=== PATIENT | female | born 1970 | race Caucasian/White ===

== ENCOUNTER 2020-11-14 13:00 | Emergency (ER) | payer OTHER, SELFPAY ==
--- NOTE | ~2020-11-14 | XR_ITS ---
XR ribs LT 2V w CXR 2V DATE: 11/14/2020 13:42 INDICATION: Fall on left side one week ago. Left chest pain TECHNIQUE: PA and lateral chest. 3 views of the left rib cage. COMPARISON: None FINDINGS: No heart size. No hilar or mediastinal enlargement. No pulmonary infiltrate or consolidation, pleural effusion or pulmonary vascular congestion or pneumo thorax. No left rib fracture is evident. IMPRESSION: No active cardiac pulmonary disease No evidence of left rib fracture Reviewed, dictated and finalized at location A. AD DRESSER
[2020-11-14 13:03] VITALS: BP 121/83; PULSE 107; RESP 18; TEMP 36.3; O2SAT 99
[2020-11-14] MEDS: KETOROLAC (*BKC) 60 MG/2 ML VIAL IM (13:40)
--- NOTE | 2020-11-14 13:57 | ED.FALL ---
HPI - Fall General Chief Complaint: Fall Stated Complaint: fall last week, rib pain Time Seen by Provider: 11/14/20 13:15 History of Present Illness HPI Narrative: Patient is a 50-year-old female who presents ER with left anterior chest wall pain just inferior to the breast. She fell onto a piece of luggage last week and the pain has been persistent. Is with movement and deep breath. No exertional shortness of breath. No swelling. Tender to palpation. No relief with Tylenol/ibuprofen/Aleve. Related Data Allergies Allergy/AdvReac Type Severity Reaction Status Date / Time Sulfa (Sulfonamide Allergy Mild Anaphylactic Verified 11/14/20 13:07 Antibiotics) Shock Review of Systems Cardiovascular: Cardiovascular: Reports chest pain, Denies rapid heart rate and Denies radiating jaw, neck or arm pain Respiratory: Respiratory: Denies cough, Denies dyspnea and Denies wheezing Gastrointestinal: Gastrointestinal: Denies nausea and Denies vomiting PMFSH Past Medical History Medical History (Updated 11/14/20 @ 14:23 by Wicho Steward MD) Healthy female adult Surgical History Surgical History (Updated 11/14/20 @ 13:58 by Wicho Steward MD) History of breast augmentation Social History Social History Smoking status: Former smoker Alcohol intake: never Exam Narrative: Exam Narrative: GENERAL: Well-appearing, well-nourished, and in no acute distress. HEAD: Normocephalic, atraumatic. CHEST: Clear to auscultation. No respiratory distress. Reproducible tenderness inferior to left breast without evidence of bruising. No palpable fluid collection. HEART: Tachycardic and regular. Normal peripheral pulses. NEURO: Alert and oriented x3. PSYCH: Normal mood and affect. Course Vital Signs Vital signs: Vital Signs Temperature 97.3 F L 11/14/20 13:03 Pulse Rate 107 H 11/14/20 13:03 Respiratory Rate 18 11/14/20 13:03 Blood Pressure 121/83 11/14/20 13:03 Pulse Oximetry 99 11/14/20 13:03 Temperature 97.3 F L 11/14/20 13:03 Pulse Rate 107 H 11/14/20 13:03 Respiratory Rate 18 11/14/20 13:03 Blood Pressure 121/83 11/14/20 13:03 Pulse Oximetry 99 11/14/20 13:03 MDM - Fall Imaging Data Radiologist's impression: ITS Impressions Ribs w/Chest X-Ray 11/14/20 13:45 IMPRESSION: No active cardiac pulmonary disease No evidence of left rib fracture Discharge Plan Discharge Clinical Impression: Chest wall pain Patient Disposition: Home, Self-Care Condition: Stable Instructions: Chest Wall Pain (ED) Additional Instructions: Return to the ER if you cannot breathe, you cannot keep down food/water, you have fever over 101F, or you have now productive cough. Prescriptions: New tramadol 50 mg tablet 50 mg PO Q6H PRN (Reason: pain) Qty: 14 RF: 0 Follow-up/Referrals: Abdiaziz Hodge Jr., MD [Primary Care Provider] - 2 Weeks
[2020-11-14 14:32] VITALS: BP 118/88; PULSE 98; RESP 20; O2SAT 99
== END 2020-11-14 14:33 | disposition home or self-care (01) ==
PROVIDERS: Emergency Provider Emergency Medicine; PCP Internal Medicine
DX: R07.89 Other chest pain (principal); Z87.891 Personal history of nicotine dependence
CPT/HCPCS: 71046; 71100; 96372; 99283; J1885

== ENCOUNTER 2020-11-25 02:05 | Inpatient (IN) | payer OTHER, SELFPAY ==
[2020-11-25] VITALS (20 sets, daily range): BP systolic 85–127; BP diastolic 46–75; PULSE 82–103; RESP 14–20; TEMP 36.2–38.6; O2SAT 90–100; BMI 28.9
--- NOTE | ~2020-11-25 | XR_ITS ---
EXAMINATION: XR abdomen/kub 1V DATE: 12/02/2020 05:41 INDICATION: Adynamic ileus. TECHNIQUE: A supine view of the abdomen was obtained. COMPARISON: Abdomen radiographs 12/01/2020 FINDINGS: There are multiple dilated loops of small bowel. The colon is normal in caliber. IMPRESSION: 1. Persistently dilated small bowel, likely adynamic ileus. Reviewed, dictated and finalized at location A.
--- NOTE | ~2020-11-25 | XR_ITS ---
EXAMINATION: XR UGI water soluble w sbs EXAM DATE: 12/01/2020 11:11 INDICATION: Dilated bowel, postoperative ileus. TECHNIQUE: Foreclosure Home Inspector radiograph was acquired. Limited water-soluble upper GI examination was performed fo llowed by small bowel series through nasogastric tube. A total of 23 images are available with fluoro scopy time of 0.1 minutes used during the upper GI portion of exam. Dose reduction digital pulsed flu oroscopy was used at 4 frames per second with DAP 8.8 Gycm2. FINDINGS: On initial images the feeding tube tip was in the stomach but side port above the diaphragm level. Patient does have a small to moderate size sliding gastroesophageal hiatal hernia, however th e nasogastric tube was advanced 5-10 cm and then resecured before administering contrast. A total of 360 mL were instilled, 240 initially and then an additional 120 after one hours time. The stomach has normal appearance. On the 15 minute projection contrast identified within moderately distended jejunum with progressive opacification of distended jejunum on the 30 minute and 1 hour adilson ges. Patient was then brought back to her room. 2 portable KUB images were obtained at 1.5 and 2.0 ho urs time. Contrast is confirmed within the colon on the 1.5 hour image, and to the rectum at 2 hours time. This is normal transit time. Patient tolerated adjusting nasogastric tube and the procedure wel l. IMPRESSION: Distended jejunum, normal transit time 1.5 hours to the colon. Ileus. Reviewed, dictated and finalized at location A. IMPRESSION: Distended jejunum, normal transit time 1.5 hours to the colon. Ileu s.
--- NOTE | ~2020-11-25 | XR_ITS ---
EXAMINATION: XR abdomen/kub 1V DATE: 12/01/2020 08:31 INDICATION: Adynamic ileus. TECHNIQUE: A supine view of the abdomen on 2 radiographs was obtained. COMPARISON: Abdomen radiographs 11/30/2020 FINDINGS: There are multiple dilated loops of small bowel. The colon is decompressed. The nasogastric tube tip is in the stomach. IMPRESSION: 1. Persistently dilated small bowel, likely adynamic ileus. Reviewed, dictated and finalized at location A.
--- NOTE | ~2020-11-25 | XR_ITS ---
EXAMINATION: XR abdomen/kub 1V DATE: 11/30/2020 05:41 INDICATION: Adynamic ileus. TECHNIQUE: A supine view of the abdomen on 2 radiographs was obtained. COMPARISON: Abdomen radiographs 11/29/2020 FINDINGS: There are multiple dilated loops of small bowel. The colon is decompressed. The nasogastric tube tip is in the stomach. IMPRESSION: 1. Persistently dilated small bowel, likely adynamic ileus. Reviewed, dictated and finalized at location A.
--- NOTE | ~2020-11-25 | XR_ITS ---
XR abdomen obstructive series DATE: 11/30/2020 21:19 INDICATION: Ileus. Check NG tube. TECHNIQUE: Position supine AP views on 11/30/2020 at 2118 and 2119 hours COMPARISON: 12/01/2020 portable AP views at 0537 hours FINDINGS: NG tube tip is in the very proximal stomach, the Roxanol side-port in the lower chest. Adva ncement of the tube is recommended. There is gaseous distention of numerous small bowel segments, mildly improved. Diminished diameters s kavita earlier today. No visceromegaly is evident. IMPRESSION: Extensive gaseous distention of the small bowel, with mild improvement of small bowel dil atation since earlier today NG tube in very proximal stomach; advancement is recommended Reviewed, dictated and finalized at Location A. Reviewed, dictated and finalized at location A. IMPRESSION: Extensive gaseous distention of the small bowel, with mild improvem ent of small bowel dilatation since earlier today NG tube in very proximal stomach; advancement is recommended
--- NOTE | ~2020-11-25 | XR_ITS ---
EXAMINATION: XR abdomen NG/feed tube insert DATE: 11/29/2020 13:34 INDICATION: Nasogastric tube placement. TECHNIQUE: An upright view of the abdomen was obtained. COMPARISON: CT abdomen and pelvis 11/25/2020 FINDINGS: The lower abdomen is excluded. There are multiple dilated loops of small bowel. The colon i s decompressed. The nasogastric tube tip is in the stomach. IMPRESSION: 1. Nasogastric tube tip in the stomach. 2. Dilated small bowel, consistent with adynamic ileus. Reviewed, dictated and finalized at location A.
--- NOTE | ~2020-11-25 | XR_ITS ---
EXAMINATION: XR abdomen/kub 1V DATE: 11/28/2020 11:46 INDICATION: Abdominal pain. TECHNIQUE: A supine view of the abdomen on 2 radiographs was obtained. COMPARISON: CT abdomen and pelvis 11/25/2020 FINDINGS: There are multiple dilated loops of small bowel. The colon is normal in caliber. There is a surgical drain in the right lower quadrant. IMPRESSION: 1. Dilated small bowel, likely adynamic ileus. Reviewed, dictated and finalized at location A. CYTOGENETIC TECHNOLOGIST
--- NOTE | ~2020-11-25 | CT_ITS ---
EXAMINATION: CT abdomen pelvis w con INDICATION: Lower abdominal pain TECHNIQUE: Computed tomographic images of the abdomen and pelvis were obtained after the administrati on of 100 cc of Omnipaque 350 intravenous contrast. The dose-length product (DLP) was 475.47 mGy-cm. Automated exposure control and iterative reconstruction technique were employed. COMPARISON: 08/13/2020 FINDINGS: The lung bases are clear. The heart size is normal. There is a small sliding hiatal hernia. Bilateral breast implants are noted. The liver, spleen, pancreas, gallbladder, and adrenal glands ar e normal. Cysts of the kidneys measure up to 12 mm on the right. There is calcified atherosclerosis o f the aorta and many of the other arteries. The dilated appendix measures up to 12 mm. There are tiny foci of gas adjacent to the appendix. There is fluid and edematous stranding in the periappendiceal fat. No pathologically enlarged abdominal or pelvic lymph nodes are identified. There are no dilated loops of bowel. IMPRESSION: 1. Perforated acute appendicitis. These findings were discussed with Dr. Jermain Moore in the Em ergency Department at 0353 hours on 11/25/2020 by the [employer] Radiologist. Reviewed, dictated and finalized at location A. TE PLANNING ATTORNEY IMPRESSION: 1. Perforated acute appendicitis. These findings were discussed with Dr. Jermain Moore in the Emergency Department at 0353 hours on 11/25/2020 by the [employer] Radiologist.
--- NOTE | ~2020-11-25 | XR_ITS ---
EXAMINATION: XR abdomen/kub 1V DATE: 11/29/2020 05:42 INDICATION: Adynamic ileus. Abdominal pain. TECHNIQUE: A supine view of the abdomen on 2 radiographs was obtained. COMPARISON: Abdomen radiographs 11/28/2020 FINDINGS: There are multiple dilated loops of small bowel. The colon is decompressed. There is a surg ical drain and right lower quadrant. IMPRESSION: 1. Persistently dilated small bowel, likely adynamic ileus. Reviewed, dictated and finalized at location A.
--- NOTE | ~2020-11-25 | XR_ITS ---
EXAMINATION: XR chest 2V EXAM DATE: 11/30/2020 14:39 INDICATION: Shortness of breath TECHNIQUE: Frontal and lateral projections of the chest obtained and reviewed. Comparison is made to prior examination from 11/14/2020. FINDINGS: There is a nasogastric tube seen with tip collimated off the study, but below the left sim diaphragm. Some dilated air-filled viscus in the left upper quadrant. The lungs are clear. Possible d evelopment of small pleural effusions. The cardiomediastinal silhouette is within normal limits. Th ere is no pneumothorax suspected. The bones and soft tissues are unremarkable. IMPRESSION: Possible interval development small pleural effusions. Reviewed, dictated and finalized at location A.
--- NOTE | 2020-11-25 02:20 | ED.ABDPAIN ---
HPI - Abdominal Pain General Chief Complaint: Abdominal Pain Stated Complaint: abd pain Time Seen by Provider: 11/25/20 02:07 History of Present Illness HPI narrative: Severe lower abdominal pain for more than 24 hours. Constant. Worsening in severity. Radiates to the bilateral lower back. Associated with nausea. She tried peptobismol with without relief. She says that she is in too much pain to known if she has had any urinary symptoms. She has never had these symptoms before. Related Data Home Medications Medication Instructions Recorded Confirmed No Home Medications 11/25/20 11/25/20 Allergies Allergy/AdvReac Type Severity Reaction Status Date / Time Sulfa (Sulfonamide Allergy Mild Anaphylactic Verified 11/25/20 07:10 Antibiotics) Shock Review of Systems Review of Systems: All systems reviewed & are unremarkable except as noted in HPI and below Constitutional: Constitutional: Denies fever(s) Cardiovascular: Cardiovascular: Denies chest pain Respiratory: Respiratory: Denies dyspnea Gastrointestinal: Gastrointestinal: Reports abdominal pain, Denies constipation, Denies diarrhea and Reports nausea Genitourinary: Genitourinary: Reports as per HPI Musculoskeletal: Musculoskeletal: Reports back pain Neurologic: Reports system reviewed and no additional complaints, except as documented PMFSH Past Medical History Medical History (Updated 11/25/20 @ 07:21 by Jermain Moore MD) Healthy female adult Surgical History Surgical History (Updated 11/14/20 @ 13:58 by Wicho Steward MD) History of breast augmentation Family History Family History (Updated 11/25/20 @ 06:54 by Sharon Snow RN) Mother History of heart attack Father Sepsis Social History Social History Smoking status: Current every day smoker Tobacco type: cigarettes Additional smoking assessment comments: 2 to 3 per day for last couple of days Alcohol intake: never Substance use: never Spiritual care concerns: No Exam Const: General: healthy appearing and alert Nutritional Appearance: well nourished Orientation/consciousness: patient oriented x3 Other: mild distress HENMT: Head: normal to inspection Neck: Neck: normal visual inspection and no lymphadenopathy Chest: Chest palpation & inspection: no tenderness Resp: Effort & Inspection: normal respiratory effort Auscultation: clear to auscultation bilaterally, no rales, no rhonchi and no wheezes Cardio: Jugular venous distension: no JVD Rate: regular rate Rhythm: regular rhythm Heart sounds: no murmurs GI: Inspection: non-distended GI Palp: Yes Soft to palpation, Yes Tenderness to palpation present (GI) (diffuse), Yes Guarding due to palpation present (GI) and No Rebound tenderness present Skin: General skin exam: normal color Neuro: General: patient oriented x3, moves all extremities and CN's II-XI intact bilaterally Speech: normal speech Extrem: General: no edema Psych: Appearance: well kempt Affect: normal affect Course Vital Signs Vital signs: Vital Signs Temperature 37.3 C 11/25/20 02:21 Pulse Rate 99 11/25/20 02:21 Respiratory Rate 20 11/25/20 02:21 Blood Pressure 109/75 11/25/20 02:21 Pulse Oximetry 100 11/25/20 02:21 Temperature 36.9 C 11/25/20 06:58 Pulse Rate 97 11/25/20 06:58 Respiratory Rate 18 11/25/20 06:58 Blood Pressure 113/50 L 11/25/20 06:58 Pulse Oximetry 95 11/25/20 06:58 MDM - Abdominal Pain MDM Narrative Medical decision making narrative: Acute perforated appendicitis. Zosyn given. Dr. Bautista will admit and plan for the OR this morning Medical Records Attestation: I reviewed the patient's medical records. Lab Data Attestation: I reviewed the patient's lab results. Result diagrams: 11/25/20 02:40 11/25/20 02:40 Labs: Lab Results 11/25/20 11/25/20 11/25/20 Range/Units 02:40 02:40 02:57 WBC 24.5 H (4.5-10.0) K/mm3 RBC
[2020-11-25] MEDS: SODIUM CHLORIDE 0.9% IV 1,000 ML 999 ML IV CONT (02:36)
[2020-11-25] MEDS: ONDANSETRON INJ 4 MG/2 ML VIAL IV PUSH (02:36)
[2020-11-25] MEDS: MORPHINE SULFATE (*CRX) 4 MG/ML INJ IV PUSH (02:37)
[2020-11-25 03:02] LABS: Basophils Absolute Auto 0.1 K/mm3 (0.0-0.1); Basophils Percent Auto 0.3 % (0.2-1.2); Hematocrit 44.3 % (37.0-47.0); Hemoglobin 14.5 g/dL (12.0-15.0); Immature Granulocyte Absolute 0.16 K/mm3 (0.00-0.031); Immature Granulocyte Percent A 0.7 % (0-0.5); Lymphocytes Absolute Auto 2.06 K/mm3 (0.9-3.2); Lymphocytes Percent Auto 8.4 % (18.3-44.2); Mean Corpuscular HGB Conc 32.7 g/dl (32-36); Mean Corpuscular Volume 91.7 fl (80-100); Mean Platelet Volume 9.6 fl (7.4-10.4); Monocytes Absolute Auto 1.3 K/mm3 (0.1-0.6); Monocytes Percent Auto 5.3 % (2.6-8.5); Neutrophils Absolute Auto 20.9 K/mm3 (1.3-6.7); Neutrophils Percent Auto 85.3 % (45.5-73.1); Platelet Count Result 345 k/mm3 (150-375); Red Blood Count 4.83 M/mm3 (4.2-5.4); Red Cell Distribution Width 12.9 % (11.5-14.5); White Blood Count 24.5 K/mm3 (4.5-10.0)
[2020-11-25 03:13] LABS: Alanine Aminotransferase 24 U/L (4-35); Albumin Level 4.6 g/dL (3.5-5.1); Alkaline Phosphatase 93 U/L (38-126); Anion Gap 9 mmol/L (8-16); Aspartate Amino Transferase 26 U/L (14-36); Bilirubin,Total 1.1 mg/dL (0.2-1.3); Blood Urea Nitrogen 14 mg/dL (7-17); Calcium 9.9 mg/dL (8.4-10.2); Carbon Dioxide 28 mmol/L (22-30); Chloride 101 mmol/L (98-107); Estimated CRCL calculation 70 ml/min; Estimated Glomerular Filt Rate > 60; Glucose 148 mg/dL (65-105); Lipase 61 U/L (23-300); Potassium 3.8 mmol/L (3.4-5.0); Sodium 138 mmol/L (137-145)
[2020-11-25 03:37] LABS: Add Urine Microscopic? YES; Appearance Urine Cloudy (Clear); Bacteria Urine Trace /hpf; Bilirubin Urine Negative (Negative); Blood Urine 2+ (Negative); Color Urine Amber (Yellow); Glucose Urine UA Negative (Negative); Ketones Urine 1+ mg/dL (Negative); Leukocyte Esterase Ur 1+ LEU/UL (Negative); Mucus Urine Heavy /lpf; Nitrate Urine Negative (Negative); Protein Urine 3+ mg/dL (Negative); Specific Grav Ur 1.029 (1.001-1.035); Squamous Epithelial Cell Urine Many /hpf (Few); Urobilinogen Urine Negative mg/dL (<2.0); WBC Urine 21-30 /hpf
[2020-11-25] MEDS: fentaNYL CITRATE INJ (*CRX) 100 MCG/2 ML VIAL 50 MCG IV PUSH (03:37)
[2020-11-25] MEDS: HYDROmorphone HCL INJ (*CRX) 1 MG/ML SYR 0.5 MG IV PUSH ×2 (04:26→06:08)
[2020-11-25] MEDS: LACTATED RINGERS 1,000 ML 125 ML IV CONT ×2 (06:07→16:27)
--- NOTE | 2020-11-25 06:46 | ADMGEN ---
This patient, Adele Reeder, was admitted to Medical Room 261-01. Patient/family oriented to hospital policies and general routines including ID bracelet, bed and alarms, visiting hours, pain management, procedures, bathroom and other care routines, personal items, smoking policy, room service/diet, and visiting hours. Information on how to activate the Rapid Response Team has been discussed. Patient/Family are encouraged to report perceived risks to care and to ask questions if they do not understand what they are told or what they should do.
--- NOTE | 2020-11-25 07:40 | PM.IMHP ---
H&P: HPI History of Present Illness Date/Time: 11/25/20 07:40 Chief Complaint: Lower abdominal pain starting 2 days ago Narrative: Adele Reeder is a 50 year old female presented to the [facility] emergency room early this morning with severe lower abdominal pain for more than 24 hours. It has been constant. It is worsening in severity. Radiates to the bilateral lower back. Associated with nausea. She tried peptobismol with without relief. She says that she is in too much pain to known if she has had any urinary symptoms. She has never had these symptoms before. A workup in the emergency room reveals that the patient by CT scan has what appears to be a dilated perforated appendix with some small air bubbles alongside if and along with that some fluid collection that has not yet formed an abscess. White count is elevated 24,000. Her otherwise labs are otherwise fairly normal. She had mild hypotension. I asked for blood cultures to be drawn and a urine culture has been sent. Review of Systems Constitutional: Constitutional: Reports as per HPI and Denies headache(s) Eyes: Eyes: Denies loss of vision and Denies eye pain ENT: Reports Normal hearing present, Denies change in voice, Denies dizziness and Denies headache(s) Cardiovascular: Cardiovascular: Denies chest pain and Denies dyspnea Respiratory: Respiratory: Denies dyspnea and Denies wheezing Gastrointestinal: Gastrointestinal: Reports abdominal pain ( all across the abdomen more lower than upper) Comments: Pain across the lower abdomen into her back that started approximately 5:30 p.m. on Monday of this week. Genitourinary: Comments: No history of chronic urinary tract infections Musculoskeletal: Musculoskeletal: Denies back pain and Denies arthralgias Integumentary/Breasts: Comments: History of bilateral breast augmentation Neurologic: Reports Normal hearing present, Denies dizziness, Denies headache(s), Denies loss of vision and Denies memory loss Psychiatric: Psychiatric: Denies memory loss and Denies panic attacks Endocrine: Endocrine: Reports no additional endocrine complaints Hematologic/Lymphatic: Hematologic/Lymphatic: Reports no additional hematologic/lymphatic complaints Allergic/Immunologic: Allergic/Immunologic: Denies wheezing PMFSH Past Medical History Medical History Healthy female adult Overweight (BMI 25.0-29.9) Surgical History Surgical History History of breast augmentation Family History Family History Mother History of heart attack Father Sepsis Social History Social History Smoking status: Current every day smoker Tobacco type: cigarettes Additional smoking assessment comments: 2 to 3 per day for last couple of days Alcohol intake: never Substance use: never Spiritual care concerns: No Meds Home Medications and Allergies Home Medications Medication Instructions Recorded Confirmed Type No Home Medications 11/25/20 11/25/20 History Allergies Allergy/AdvReac Type Severity Reaction Status Date / Time Sulfa (Sulfonamide Allergy Mild Anaphylactic Verified 11/25/20 07:10 Antibiotics) Shock Vital Signs Vital Signs - 24 hr 11/25/20 02:21 11/25/20 03:40 11/25/20 04:01 Temperature 37.3 C Pulse Rate 99 97 96 Respiratory Rate 20 18 18 Blood Pressure 109/75 99/60 L 93/73 L Pulse Oximetry 100 97 97 11/25/20 04:16 11/25/20 05:25 11/25/20 06:08 Temperature Pulse Rate 94 99 94 Respiratory Rate 20 20 18 Blood Pressure 107/70 102/64 127/71 Pulse Oximetry 99 94 94 11/25/20 06:58 Temperature 36.9 C Pulse Rate 97 Respiratory Rate 18 Blood Pressure 113/50 L Pulse Oximetry 95 Exam Const: General: cooperative, no acute distress, well developed, alert an
[2020-11-25] MEDS: MORPHINE SULFATE (*CRX) 2 MG/ML INJ IV PUSH (08:05)
--- NOTE | 2020-11-25 09:15 | PC.NURSE ---
To OR per bed, IV intact. Report given to JORGE Dale.
--- NOTE | 2020-11-25 09:34 | WPDANESEPPF ---
Anes - Initial Pre Proc Eval Procedure: Operation Date: 11/25/20 10:30 Proposed Procedures p Laparoscopic Appendectomy - Moiz Bautista MD Date/Time: 11/25/20 09:34 Surgeon: Moiz Bautista MD Pre Op Diagnosis: Acute appendicitis Patient Data Age: 50 Gender: F Height: 5 ft 3 in Weight: 74 kg Last Vital Signs Temp 38.6 C H 11/25/20 09:24 Pulse 103 H 11/25/20 09:24 Resp 20 11/25/20 09:24 BP 114/69 11/25/20 09:24 Pulse Ox 90 11/25/20 09:24 Allergies Allergy/AdvReac Type Severity Reaction Status Date / Time Sulfa (Sulfonamide Allergy Mild Anaphylactic Verified 11/25/20 07:10 Antibiotics) Shock Home Medications Medication Instructions Recorded Confirmed Type No Home Medications 11/25/20 11/25/20 History Laboratory Tests 11/25/20 11/25/20 11/25/20 02:40 02:40 02:57 WBC 24.5 K/mm3 H K/mm3 (4.5-10.0) RBC 4.83 M/mm3 M/mm3 (4.2-5.4) Hgb 14.5 g/dL g/dL (12.0-15.0) Hct 44.3 % % (37.0-47.0) MCV 91.7 fl fl (80-100) MCH 30.0 pg pg (26-34) MCHC 32.7 g/dl g/dl (32-36) RDW 12.9 % % (11.5-14.5) Plt Count 345 k/mm3 k/mm3 (150-375) MPV 9.6 fl fl (7.4-10.4) Immature Gran % (Auto) 0.7 % H % (0-0.5) Neut % (Auto) 85.3 % H % (45.5-73.1) Lymph % (Auto) 8.4 % L % (18.3-44.2) Prentiss % (Auto) 5.3 % % (2.6-8.5) Eos % (Auto) 0.0 % % (0-4.4) Baso % (Auto) 0.3 % % (0.2-1.2) Lymph # (Auto) 2.06 K/mm3 K/mm3 (0.9-3.2) Prentiss # (Auto) 1.3 K/mm3 H K/mm3 (0.1-0.6) Eos # (Auto) 0.0 K/mm3 K/mm3 (0-0.3) Baso # (Auto) 0.1 K/mm3 K/mm3 (0.0-0.1) Abs Immat Gran (auto) 0.16 K/mm3 H K/mm3 (0.00-0.031) Absolute Neuts (auto) 20.9 K/mm3 H K/mm3 (1.3-6.7) Absolute Nucleated RBC 0.0 K/mm3 K/mm3 (0.0-0.012) Nucleated RBC % 0.0 % % (0.0-0.2) Sodium 138 mmol/L mmol/L (137-145) Potassium 3.8 mmol/L mmol/L (3.4-5.0) Chloride 101 mmol/L mmol/L (98-107) Carbon Dioxide 28 mmol/L mmol/L (22-30) Anion Gap 9 mmol/L mmol/L (8-16) BUN 14 mg/dL mg/dL (7-17) Creatinine 0.70 mg/dL mg/dL (0.7-1.0) Estim Creat Clear Calc 70 ml/min ml/min Estimated GFR > 60 (59 - ) Glucose 148 mg/dL H mg/dL (65-105) Calcium 9.9 mg/dL mg/dL (8.4-10.2) Total Bilirubin 1.1 mg/dL mg/dL (0.2-1.3) AST 26 U/L U/L (14-36) ALT 24 U/L U/L (4-35) Alkaline Phosphatase 93 U/L U/L (38-126) Total Protein 8.0 g/dL g/dL (6.3-8.2) Albumin 4.6 g/dL g/dL (3.5-5.1) Lipase 61 U/L U/L (23-300) Urine Color Kimberly (Yellow) Urine Appearance Cloudy H (Clear) Urine pH 5.0 (5.0-9.0) Ur Specific [place] 1.029 (1.001-1.035) Urine Protein 3+ mg/dL H mg/dL (Negative) Urine Glucose (UA) Negative mg/dL mg/dL (Negative) Urine Ketones 1+ mg/dL H mg/dL (Negative) Ur Blood (Man) 2+ H (Negative) Urine Nitrate Negative (Negative) Urine Bilirubin Negative (Negative) Urine Urobilinogen Negative mg/dL mg/dL (<2.0) Leukocyte Esterase Rfl 1+ GALO/UL H GALO/UL (Negative) Urine RBC 11-20 /hpf H /hpf (0-2) Urine WBC 21-30 /hpf H /hpf Ur Squamous Epith Cells Many /hpf H /hpf (Few) Urine Bacteria Trace /hpf /hpf Urine Mucus Heavy /lpf H /lpf Patient hx anesthesia problems: none Family hx anesthesia problems: none PMFSH Past Medical History Medical History Healthy female adult Overweight (BMI 25.0-29.9) Surgical History Surgical History (Reviewed
[2020-11-25] MEDS: SCOPOLAMINE 1.5 MG PATCH TRANSDERM (09:43)
[2020-11-25] MEDS: HYDROmorphone HCL INJ (*CRX) 1 MG/ML SYR IV PUSH (09:45)
[2020-11-25] MEDS: LACTATED RINGERS 1,000 ML 30 ML IV CONT ×2 (09:46→13:27)
--- NOTE | 2020-11-25 10:15 | WPDHPUPDATE1 ---
History and Physical Update Update Date/Time: 11/25/20 10:15 History and Physical has been reviewed, including an updated exam of the patient. There are NO changes in the patient's condition. Risks, benefits, and alternatives of a laparoscopic appendectomy possible openhave been discussed and questions answered. Patient agrees to proceed with procedure.
[2020-11-25] MEDS: BUPIVACAINE/EPINEPHRINE 0.5% 30 ML VIAL INFILTRATE (11:40)
--- NOTE | 2020-11-25 13:36 | PM.PROC ---
Procedure Note - Detailed Date of procedure: 11/25/20 Pre-op diagnosis: Acute appendicitis Acute appendicitis with perforation Post-op diagnosis: same Procedure performed: Laparoscopic Appendectomy Description of procedure: The patient was seen again in the Holding Room. The risks, benefits, complications, treatment options, and expected outcomes were discussed with the patient and/or family. The possibilities of reaction to medication, pulmonary aspiration, perforation of viscus, bleeding, recurrent infection, finding a normal appendix, the need for additional procedures, failure to diagnose a condition, and creating a complication requiring transfusion or operation were discussed. There was concurrence with the proposed plan and informed consent was obtained. The site of surgery was properly noted/marked. The patient was taken to Operating Room, and a time out was preformed which identified this as the proper patient, and the procedure verified as laparoscopic appendectomy, possible open. The patient was placed in the supine position and general anesthesia was induced, along with placement of orogastric tube, SCD hose, and a Spence catheter. The abdomen was prepped and draped in a sterile fashion. A 5 mm umbilical incision was made and the peritoneal cavity was accessed using the Veress needle technique. Once the abdomen was insufflated to 14 mmHg pressure a 5 mm XL trocar over the 0? 5 mm scope was carefully twisted into the abdomen via the umbilicus. The pneumoperitoneum was then established to steady pressure of 14 mm Hg. A 12 mm laparoscopic port was placed through a transverse suprapubic incision. An additional 5 mm cannula was then placed in the left lower quadrant of the abdomen at a level half way between the umbilicus and pubic symphysis under direct vision. A careful evaluation of the entire abdomen was carried out. The patient was placed in Trendelenburg and left lateral decubitus position. The small intestines were retracted in the cephalad and left lateral direction away from the pelvis and right lower quadrant. The patient was found to have an enlarged and inflamed appendix that was extending [into the right side of the pelvis. There was evidence with some yellowish exudate and so of several small particles of stool that there was a perforation site.. The appendix was carefully dissected. It seemed to be to stuck between the right ovary and tube and the underside of 1 loop of small bowel. After thorough all dissection with mostly blunt pushing in a few uses of the L-shaped Bovie cautery we were able to dissect out and better identify the entire length of the appendix which was quite swollen. Perforation site seemed to be right at its base on the backside. Once it was free a 45 mm ethicon endogastroentestinal stapler with a vascular load was placed across the mesoappendix. This was fired and hemostasis was checked along the staple line and appeared to be adequate. Then another cartridge containing a vascular load applied and the stapler then placed right to the base of the appendix. This was also fired and bleeding was checked. The appendix was then divided at its base using the same 45 mm stapler with a 3.5 mm bowel wall load. Minimal appendiceal stump was left in place. When I clamped this stapler down appendix tore free leaving a small open site at the base of the appendix. There was no evidence of bleeding, leakage, or complication after division of the appendix at its junction with the cecum. Just prior to stapling across the base the appendix there was a appendiceal appendage piece of fat that was also excised with scissors and this was placed in the bag when we removed the appendix from the abdomen. The appendix was then placed in an endobag which had been brought through the 12 mm suprapubic port site. The appendix and the bag were then extracted through this larger port site in the suprapubic position. Following this we obtained a 2 0
[2020-11-25] MEDS: ACETAMINOPHEN 500 MG TABLET PO (16:13)
[2020-11-25] MEDS: LACTATED RINGERS 1,000 ML 999 ML IV CONT ×2 (17:20→19:02)
[2020-11-25] MEDS: HYDROcodone/acetaminophen (*CRX) 5-325 MG TABLET 1 TAB PO (17:27)
[2020-11-25] MEDS: IBUPROFEN IV 800 MG/200 ML 800 MG/200 ML BAG 400 MG IVPB (19:03)
[2020-11-25] MEDS: NICOTINE (*PBKC) 21 MG PATCH 1 PATCH TRANSDERM (19:08)
[2020-11-25] MEDS: SENNA/DOCUSATE SODIUM TABLET 2 TAB PO (21:02)
[2020-11-26] VITALS (7 sets, daily range): BP systolic 112–125; BP diastolic 49–85; PULSE 83–92; RESP 16–18; TEMP 36.4–37.2; O2SAT 95–100
[2020-11-26] MEDS: ONDANSETRON INJ 4 MG/2 ML VIAL IV PUSH ×4 (00:07→20:37)
[2020-11-26] MEDS: IBUPROFEN IV 800 MG/200 ML 800 MG/200 ML BAG 400 MG IVPB ×4 (00:07→17:34)
[2020-11-26] MEDS: MORPHINE SULFATE (*CRX) 4 MG/ML INJ IV PUSH ×3 (02:46→14:14)
[2020-11-26 05:45] LABS: Hematocrit 30.4 % (37.0-47.0); Hemoglobin 9.9 g/dL (12.0-15.0); Mean Corpuscular HGB Conc 32.6 g/dl (32-36); Mean Corpuscular Hemoglobin 30.1 pg (26-34); Mean Corpuscular Volume 92.4 fl (80-100); Mean Platelet Volume 10.1 fl (7.4-10.4); Platelet Count Result 255 k/mm3 (150-375); Red Blood Count 3.29 M/mm3 (4.2-5.4); Red Cell Distribution Width 13.1 % (11.5-14.5); White Blood Count 21.3 K/mm3 (4.5-10.0)
[2020-11-26 05:58] LABS: Anion Gap 4 mmol/L (8-16); Blood Urea Nitrogen 15 mg/dL (7-17); Calcium 8.6 mg/dL (8.4-10.2); Carbon Dioxide 27 mmol/L (22-30); Chloride 106 mmol/L (98-107); Estimated CRCL calculation 82 ml/min; Estimated Glomerular Filt Rate > 60; Glucose 122 mg/dL (65-105); Potassium 3.8 mmol/L (3.4-5.0); Sodium 137 mmol/L (137-145)
[2020-11-26] MEDS: LACTATED RINGERS 1,000 ML 125 ML IV CONT ×2 (06:18→17:34)
--- NOTE | 2020-11-26 07:53 | WPDANESPN ---
Anes - Prog Note Post-Op Date/Time: 11/26/20 07:53 Cardiovascular status: normal Respiratory status: normal Airway patency: baseline Mental status: baseline Post-Op hydration status: normal Vital Signs: Last Vital Signs Temp 97.5 F L 11/26/20 04:00 Pulse 86 11/26/20 04:00 Resp 18 11/26/20 04:00 BP 124/49 L 11/26/20 04:00 Pulse Ox 95 11/26/20 04:00 Pain Score (VAS): 10/28 I/O: Intake & Output 11/25/20 11/25/20 11/26/20 15:59 23:59 07:59 Intake Total 1150 1700 2000 Output Total 556 76 9243 Balance 720 1630 -250 Laboratory Tests 11/26/20 04:59 11/26/20 04:59 11/26/20 11/26/20 04:59 04:59 WBC 21.3 H RBC 3.29 L Hgb 9.9 L D Hct 30.4 L MCV 92.4 MCH 30.1 MCHC 32.6 RDW 13.1 Plt Count 255 MPV 10.1 Sodium 137 Potassium 3.8 Chloride 106 Carbon Dioxide 27 Anion Gap 4 L BUN 15 Creatinine 0.70 Estim Creat Clear Calc 82 Estimated GFR > 60 Glucose 122 H Calcium 8.6 Patient Feedback: Patient satisfied with anesthetic care.
--- NOTE | 2020-11-26 07:58 | PM.PNGS ---
Progress Note: A&P Assessment and Plan (1) Acute appendicitis with generalized peritonitis, without abscess: Onset Date: ~11/23/20 Code(s): K35.20 - Acute appendicitis with generalized peritonitis, without abscess Status: Acute Assessment and Plan: hemoglobin went down significantly. Patient may have been dehydrated when she came in had a spurriouslly high H& H. Will recheck again at noon. Continue Spence catheter for another 24 hours to monitor urine output and fluid status. (2) Cigarette smoker: Code(s): F17.210 - Nicotine dependence, cigarettes, uncomplicated Status: Acute Assessment and Plan: Patient experiencing headache last night. Apparently asked for nicotine patch which was ordered overnight. (3) Overweight (BMI 25.0-29.9): Onset Date: Unknown Code(s): E66.3 - Overweight Status: Acute Assessment and Plan: Will ask patient to go home on a low-fat diet and consider increasing activity as she recovers from her appendicitis. Additional Plan Continue close vital sign monitoring and monitoring urine output with Spence Repeat H&H in 6 hours. Continue IV antibiotics Time Spent With Patient Time with patient: 15 - 25 minutes Subjective Subjective Date/Time Seen: 11/26/20 07:58 Post Op day: 1 Patient reports: still having pain Interval history: Patient lying in bed when I came in the room. Still complaining of lower abdominal pain. Urine output has been good through the night per I&O / Spence catheter. In view of the decreased H&H will keep the Spence catheter least another 24 hours to monitor urine output and fluid status. Asked patient to stick to either clear full liquids for both breakfast and lunch today and will repeat H&H at noon. Review of Systems Constitutional: Constitutional: Reports no additional constitutional complaints ENT: Reports other (Mucous Membranes moist.) Cardiovascular: Cardiovascular: Denies dyspnea Respiratory: Respiratory: Denies pain on inspiration and Denies dyspnea Gastrointestinal: Gastrointestinal: Reports abdominal pain ( across lower abdomen), Reports bloating and Reports nausea ( on and off, but improved compared to preop yesterday) Musculoskeletal: Musculoskeletal: Reports other (No calf swelling or edema) Integumentary/Breasts: Skin/Breast: Reports system reviewed and no additional complaints, except as docu Exam Const: General: cooperative, no acute distress, alert and awake Orientation/consciousness: patient oriented x3 HENMT: Mouth: Yes moist mucous membranes Neck: Neck: normal visual inspection Chest: Chest palpation & inspection: normal inspection of the chest Resp: Effort & Inspection: normal respiratory effort Auscultation: clear to auscultation bilaterally Cardio: Jugular venous distension: no JVD Rate: regular rate Rhythm: regular rhythm GI: Inspection: incision ( Clean and dry at port sites, Tegaderm dry at exit site of RLQ drain) GI Palp: Yes abdominal tenderness ( lower abdomen.) Auscultation: Hypoactive bowel sounds present Rectal Exam: deferred Urinary Catheter: Urinary Catheter: patent and draining and urine clear Neuro: General: patient oriented x3 and moves all extremities Speech: normal speech Extrem: General: normal exam except as noted Psych: Mental Status: mental status grossly normal Speech and movement: Normal speech and movement present Affect: normal affect Thought content: Yes Normal thought content present Objective Data Vital Signs Vital Signs: Vital Signs - 24 hr 11/25/20 09:24 11/25/20 13:30 11/25/20 13:45 Temperature 38.6 C H 36.3 C L Pulse Rate 103 H 94 89 Respiratory Rate 20 20 16 Blood Pressure 114/69 100/62 105/69 Pulse Oximetry 90 100 99 11/25/20 14:00 11/25/20 14:15 11/25/20 14:30 Temperature Pulse Rate 94 94 100 Respiratory Rate 18 16 20 Blood Pressure 99/59 L 99/69 L 85/73 L Pulse Oximetry 99 100 98 11/25/20 15:00 11/25/20
[2020-11-26] MEDS: polyethylene glycoL 3350 17 GM POWD.PACK PO (08:42)
[2020-11-26 12:57] LABS: Hematocrit 29.4 % (37.0-47.0); Hemoglobin 9.5 g/dL (12.0-15.0)
[2020-11-26] MEDS: MAG HYDROX/AL HYDROX/SIMETH 30 ML UDC PO ×2 (16:22→20:36)
[2020-11-26] MEDS: HYDROcodone/acetaminophen (*CRX) 5-325 MG TABLET 1 TAB PO (16:30)
[2020-11-26] MEDS: BISACODYL 10 MG SUPPOSITORY RECTAL (18:15)
[2020-11-27] VITALS (7 sets, daily range): BP systolic 118–136; BP diastolic 55–82; PULSE 84–95; RESP 16–18; TEMP 36.1–37.1; O2SAT 94–96
[2020-11-27] MEDS: IBUPROFEN IV 800 MG/200 ML 800 MG/200 ML BAG 400 MG IVPB ×2 (00:12→06:02)
[2020-11-27] MEDS: MORPHINE SULFATE (*CRX) 4 MG/ML INJ IV PUSH (04:05)
[2020-11-27 05:19] LABS: Basophils Percent Auto 0.1 % (0.2-1.2); Eosinophils Absolute Auto 0.2 K/mm3 (0-0.3); Eosinophils Percent Auto 1.1 % (0-4.4); Hematocrit 29.7 % (37.0-47.0); Hemoglobin 9.5 g/dL (12.0-15.0); Immature Granulocyte Absolute 0.09 K/mm3 (0.00-0.031); Immature Granulocyte Percent A 0.6 % (0-0.5); Lymphocytes Absolute Auto 1.44 K/mm3 (0.9-3.2); Lymphocytes Percent Auto 9.5 % (18.3-44.2); Mean Corpuscular Hemoglobin 29.3 pg (26-34); Mean Corpuscular Volume 91.7 fl (80-100); Mean Platelet Volume 9.4 fl (7.4-10.4); Monocytes Absolute Auto 0.6 K/mm3 (0.1-0.6); Monocytes Percent Auto 3.7 % (2.6-8.5); Neutrophils Absolute Auto 12.9 K/mm3 (1.3-6.7); Platelet Count Result 238 k/mm3 (150-375); Red Blood Count 3.24 M/mm3 (4.2-5.4); Red Cell Distribution Width 13.1 % (11.5-14.5); White Blood Count 15.2 K/mm3 (4.5-10.0)
[2020-11-27] MEDS: LACTATED RINGERS 1,000 ML 125 ML IV CONT ×2 (08:36→20:46)
[2020-11-27] MEDS: polyethylene glycoL 3350 17 GM POWD.PACK PO (08:38)
[2020-11-27] MEDS: BISACODYL 10 MG SUPPOSITORY RECTAL (08:45)
[2020-11-27] MEDS: ONDANSETRON HCL ODT 4 MG TABLET PO ×3 (08:45→22:05)
[2020-11-27] MEDS: HYDROcodone/acetaminophen (*CRX) 7.5-325 MG TABLET 1 TAB PO ×3 (09:35→22:05)
--- NOTE | 2020-11-27 10:24 | PC.NURSE ---
Patient continued to c/o pain in lower abdomen 04/27. States she has not had a bowel movement but is belching. Not passing gas. Discussed importance of being up and ambulating in room and even in hallways. Encouraged increased activity and sitting in chair/couch as much as possible. Patient verbalized her understanding.
--- NOTE | 2020-11-27 11:42 | PM.PNGS ---
Progress Note: A&P Assessment and Plan (1) Acute appendicitis with generalized peritonitis, without abscess: Onset Date: ~11/23/20 Code(s): K35.20 - Acute appendicitis with generalized peritonitis, without abscess Status: Acute Assessment and Plan: hemoglobin went down significantly post-op ,but this was probably equilibration as it has now been stable for 36 hrs. and the drainage from the RLQ drain is now cloudy serous drainage Patient may have been dehydrated when she came in had a spurriouslly high H& H. Will recheck again at noon. Continue Spence catheter for another 24 hours to monitor urine output and fluid status. (2) Cigarette smoker: Code(s): F17.210 - Nicotine dependence, cigarettes, uncomplicated Status: Acute Assessment and Plan: Patient experiencing headache last night. Apparently asked for nicotine patch which was ordered overnight. (3) Overweight (BMI 25.0-29.9): Onset Date: Unknown Code(s): E66.3 - Overweight Status: Acute Assessment and Plan: Will ask patient to go home on a low-fat diet and consider increasing activity as she recovers from her appendicitis. Additional Plan Continue close vital sign monitoring and monitoring urine output with strict I & O. Repeat CBC and BMP in AM Continue IV antibiotics Depending on progress if she has a bowel movement and if her white count continues to come down she could possibly go home tomorrow. I will leave it up to my partner Dr. Levin whether not to take her drain out or leave it and have her come back to the office next week for possible drain removal. I suspect patient needs to go home on 10 more days of oral antibiotics. I was thinking of Levaquin and Flagyl but will leave this up to the rounding physician at the time of discharge as the BC's are not yet final (no c &S done of abd. fluid at the time of OR). Subjective Subjective Date/Time Seen: 11/27/20 11:42 Post Op day: 3 Patient reports: still having pain Interval history: Patient lying in bed when I entered the room. In better spirits today. Seems to be having a little less pain. She is trying a rotation of ibuprofen once every 6 hours alternating with with [place] 5/325 every 6 hours. She took a Dulcolax suppository yesterday afternoon but it did not help anything. She still has not had a bowel movement since surgery. She states she is burping some but not nauseated. Review of Systems Constitutional: Constitutional: Reports as per HPI, Reports no additional constitutional complaints and Denies headache(s) Eyes: Eyes: Denies loss of vision and Denies eye pain ENT: Reports Normal hearing present, Denies change in voice, Denies dizziness, Denies headache(s) and Reports other (Mucous Membranes moist.) Cardiovascular: Cardiovascular: Denies chest pain and Denies dyspnea Respiratory: Respiratory: Denies pain on inspiration, Denies dyspnea and Denies wheezing Gastrointestinal: Gastrointestinal: Reports abdominal pain ( across lower abdomen), Reports bloating ( Some erect but no flatus or bowel movement yet.) and Reports nausea ( on and off, but improved compared to preop yesterday) Genitourinary: Comments: Spence out this morning. Patient has not urinated yet. Musculoskeletal: Musculoskeletal: Denies back pain, Denies arthralgias and Reports other (No calf swelling or edema) Integumentary/Breasts: Skin/Breast: Reports system reviewed and no additional complaints, except as docu Neurologic: Reports Normal hearing present, Denies dizziness, Denies headache(s), Denies loss of vision and Denies memory loss Psychiatric: Psychiatric: Denies memory loss and Denies panic attacks Endocrine: Endocrine: Reports no additional endocrine complaints Hematologic/Lymphatic: Hematologic/Lymphatic: Reports no additional hematologic/lymphatic complaints Allergic/Immunologic: Allergic/Immunologic: Denies wheezing Exam Const: General: cooperat
[2020-11-27] MEDS: IBUPROFEN 600 MG TABLET PO ×3 (12:14→23:56)
[2020-11-27] MEDS: NICOTINE (*PBKC) 21 MG PATCH 1 PATCH TRANSDERM (15:08)
[2020-11-27] MEDS: ACETAMINOPHEN 500 MG TABLET PO (20:50)
[2020-11-27] MEDS: SENNA/DOCUSATE SODIUM TABLET 2 TAB PO (20:51)
[2020-11-28 02:00] VITALS: BP 131/56; PULSE 80; RESP 18; TEMP 36.2; O2SAT 92
[2020-11-28] MEDS: HYDROcodone/acetaminophen (*CRX) 7.5-325 MG TABLET 1 TAB PO ×4 (03:32→23:26)
[2020-11-28 05:28] VITALS: BP 127/62; PULSE 79; RESP 16; TEMP 36.1; O2SAT 92
[2020-11-28 05:49] LABS: Basophils Percent Auto 0.2 % (0.2-1.2); Eosinophils Absolute Auto 0.4 K/mm3 (0-0.3); Eosinophils Percent Auto 3.1 % (0-4.4); Hematocrit 29.5 % (37.0-47.0); Hemoglobin 9.4 g/dL (12.0-15.0); Immature Granulocyte Absolute 0.06 K/mm3 (0.00-0.031); Immature Granulocyte Percent A 0.5 % (0-0.5); Lymphocytes Absolute Auto 2.07 K/mm3 (0.9-3.2); Lymphocytes Percent Auto 16.5 % (18.3-44.2); Mean Corpuscular HGB Conc 31.9 g/dl (32-36); Mean Corpuscular Hemoglobin 29.8 pg (26-34); Mean Corpuscular Volume 93.7 fl (80-100); Mean Platelet Volume 9.4 fl (7.4-10.4); Monocytes Absolute Auto 0.8 K/mm3 (0.1-0.6); Monocytes Percent Auto 6.3 % (2.6-8.5); Neutrophils Absolute Auto 9.2 K/mm3 (1.3-6.7); Neutrophils Percent Auto 73.4 % (45.5-73.1); Platelet Count Result 265 k/mm3 (150-375); Red Blood Count 3.15 M/mm3 (4.2-5.4); Red Cell Distribution Width 13.3 % (11.5-14.5); White Blood Count 12.6 K/mm3 (4.5-10.0)
[2020-11-28 06:00] LABS: Anion Gap 2 mmol/L (8-16); Blood Urea Nitrogen 11 mg/dL (7-17); Carbon Dioxide 32 mmol/L (22-30); Chloride 104 mmol/L (98-107); Estimated CRCL calculation 72 ml/min; Estimated Glomerular Filt Rate > 60; Glucose 99 mg/dL (65-105); Potassium 3.2 mmol/L (3.4-5.0); Sodium 138 mmol/L (137-145)
[2020-11-28] MEDS: IBUPROFEN 600 MG TABLET PO (06:00)
[2020-11-28] MEDS: ONDANSETRON HCL ODT 4 MG TABLET PO ×3 (06:02→23:26)
[2020-11-28] MEDS: LACTATED RINGERS 1,000 ML 125 ML IV CONT (07:46)
[2020-11-28] MEDS: NICOTINE (*PBKC) 21 MG PATCH 1 PATCH TRANSDERM (09:26)
[2020-11-28] MEDS: polyethylene glycoL 3350 17 GM POWD.PACK PO (09:26)
[2020-11-28] MEDS: MAG HYDROX/AL HYDROX/SIMETH 30 ML UDC PO (09:26)
[2020-11-28 09:52] VITALS: O2SAT 93
[2020-11-28 10:00] VITALS: BP 146/72; PULSE 94; RESP 20; TEMP 36.2; O2SAT 94
--- NOTE | 2020-11-28 11:41 | PM.PNGS ---
Progress Note: A&P Assessment and Plan (1) Diffuse abdominal pain: Code(s): R10.84 - Generalized abdominal pain Status: Acute Assessment and Plan: probably constipation related. Patient has active bowel sounds and no purulent fluid from SUGAR drain. Doubt this is abscess or peritonitis. White blood cell count has come down daily and is nearly normal as well. Will get KUB. If confirms constipation, will try laxatives and/or enema. KUB is back- appears to be an ileus pattern. Will try fleets enema. If starts vomiting, may need NG tube. (2) Hypokalemia: Code(s): E87.6 - Hypokalemia Status: Acute Assessment and Plan: will supplement orally (3) Acute appendicitis with generalized peritonitis, without abscess: Onset Date: ~11/23/20 Code(s): K35.20 - Acute appendicitis with generalized peritonitis, without abscess Status: Acute Assessment and Plan: 4 days status post laparoscopic appendectomy. White count nearly normal. Abdominal pain most likely to be constipation related. Continue Zosyn for now. (4) Cigarette smoker: Code(s): F17.210 - Nicotine dependence, cigarettes, uncomplicated Status: Chronic Subjective Subjective Date/Time Seen: 11/28/20 11:41 Post Op day: 4 Patient reports: still having pain ( Continues to have abdominal pain. About the same as yesterday.), tolerating a regular diet, no bowel movement ( Only small hard yumi.) and afebrile Review of Systems Review of Systems: All systems reviewed & are unremarkable except as noted in HPI and below Constitutional: Constitutional: Denies chills, Denies fever(s) and Denies headache(s) Cardiovascular: Cardiovascular: Denies chest pain and Denies dyspnea Respiratory: Respiratory: Denies cough and Denies dyspnea Gastrointestinal: Gastrointestinal: Reports as per HPI, Reports abdominal pain, Reports constipation, Denies nausea and Denies vomiting Neurologic: Denies confusion and Denies headache(s) Exam Const: General: comfortable and no acute distress; No confusion Orientation/consciousness: patient oriented x3 and No confusion Resp: Effort & Inspection: normal respiratory effort Auscultation: clear to auscultation bilaterally Cardio: Rate: regular rate Rhythm: regular rhythm GI: Inspection: distended, incision ( Incisions all healing well) and other ( serous drainage from SUGAR drain, 290 cc yesterday) GI Palp: Yes Soft to palpation, Yes Tenderness to palpation present (GI) ( diffuse), No Guarding due to palpation present (GI), No Hernia present, No Palpable mass present and No Rebound tenderness present Auscultation: normal bowel sounds and normoactive bowel sounds Neuro: General: patient oriented x3, no focal motor deficits and No confusion Extrem: General: no calf tenderness and no edema Psych: Affect: normal affect Insight: Good insight present (Psych) Judgement: Good judgement present (Psych) Objective Data Vital Signs Vital Signs: Vital Signs - 24 hr 11/27/20 14:05 11/27/20 18:00 11/27/20 20:49 Temperature 36.7 C 36.7 C 36.1 C L Pulse Rate 92 93 95 Respiratory Rate 16 16 18 Blood Pressure 118/55 L 118/58 L 136/61 Pulse Oximetry 96 95 94 11/27/20 21:58 11/28/20 02:00 11/28/20 05:28 Temperature 36.2 C L 36.1 C L Pulse Rate 80 79 Respiratory Rate 18 16 Blood Pressure 131/56 L 127/62 Pulse Oximetry 95 92 92 11/28/20 09:52 11/28/20 10:00 Temperature 36.2 C L Pulse Rate 94 Respiratory Rate 20 Blood Pressure 146/72 H Pulse Oximetry 93 94 Intake/Output Intake/Output: Intake & Output 11/25/20 11/26/20 11/27/20 11/28/20 23:59 23:59 23:59 23:59 Intake Total 3900 4430 3330 1730 Output Total 500 2390 1440 640 Balance 3400 2040 1890 1090 Meds/Results Medications: Active Medications Generic Name Dose Route Start Last Admin Trade Name Freq PRN Reason Stop Dose Admin Acetaminophen 500 mg 11/25/20 14:18 11/27/20 20:50
[2020-11-28] MEDS: ENOXAPARIN 40 MG/0.4 ML SYRINGE SUB-Q (13:07)
[2020-11-28] MEDS: POTASSIUM CHLORIDE 20 MEQ TABLET PO (13:07)
[2020-11-28 14:00] VITALS: BP 140/76; PULSE 92; RESP 20; TEMP 36.3; O2SAT 97
[2020-11-28] MEDS: POTASSIUM CHLORIDE 20 MEQ TABLET.ER PO (16:28)
[2020-11-28 21:02] VITALS: BP 151/73; PULSE 87; RESP 16; TEMP 36.4; O2SAT 99
[2020-11-28] MEDS: FAMOTIDINE 20 MG/2 ML VIAL IV PUSH (21:07)
--- NOTE | 2020-11-29 03:08 | PC.NURSE ---
Daylight Savings Time For Daylight Savings Time Ending in the Fall - Clocks are moved back. For Daylight Savings Time Beginning in the Spring - Clocks are moved ahead. For [facility], the time of change occurs at 0200 hrs. Time is taken from the sql server dba developer. This entry on the patient's chart recognizes the change in time reflected during documentation. Example: 2 entries for vital signs may be charted for 0200 hrs.
[2020-11-29] MEDS: HYDROcodone/acetaminophen (*CRX) 7.5-325 MG TABLET 1 TAB PO (05:19)
[2020-11-29] MEDS: ONDANSETRON HCL ODT 4 MG TABLET PO (05:19)
[2020-11-29 05:27] LABS: Hematocrit 32.5 % (37.0-47.0); Hemoglobin 10.5 g/dL (12.0-15.0); Mean Corpuscular HGB Conc 32.3 g/dl (32-36); Mean Corpuscular Hemoglobin 29.2 pg (26-34); Mean Corpuscular Volume 90.5 fl (80-100); Mean Platelet Volume 9.2 fl (7.4-10.4); Platelet Count Result 358 k/mm3 (150-375); Red Blood Count 3.59 M/mm3 (4.2-5.4); Red Cell Distribution Width 13.2 % (11.5-14.5)
[2020-11-29 05:43] LABS: Anion Gap 5 mmol/L (8-16); Blood Urea Nitrogen 9 mg/dL (7-17); Calcium 7.8 mg/dL (8.4-10.2); Carbon Dioxide 31 mmol/L (22-30); Chloride 102 mmol/L (98-107); Estimated CRCL calculation 82 ml/min; Estimated Glomerular Filt Rate > 60; Glucose 97 mg/dL (65-105); Potassium 3.4 mmol/L (3.4-5.0); Sodium 138 mmol/L (137-145)
[2020-11-29 06:00] VITALS: BP 153/72; PULSE 88; RESP 16; TEMP 37; O2SAT 94
[2020-11-29] MEDS: FAMOTIDINE 20 MG/2 ML VIAL IV PUSH ×2 (09:10→21:08)
[2020-11-29] MEDS: NICOTINE (*PBKC) 21 MG PATCH 1 PATCH TRANSDERM (09:10)
[2020-11-29] MEDS: POTASSIUM CHLORIDE 20 MEQ TABLET.ER PO (09:10)
[2020-11-29] MEDS: ENOXAPARIN 40 MG/0.4 ML SYRINGE SUB-Q (09:11)
--- NOTE | 2020-11-29 12:22 | PM.PNGS ---
Progress Note: A&P Assessment and Plan (1) Adynamic ileus: Code(s): K56.0 - Paralytic ileus Status: Acute Assessment and Plan: discussed with patient. Explained the nature of adynamic ileus. Explained that it is not uncommon in the setting of ruptured appendicitis with peritonitis as well as a long surgical procedure ( laparoscopic appendectomy took 2-1/2 to 3 hours). explained best treatment would be NG placement with multiple times of ambulation in the hallway. Patient will be NPO except ice chips. She agrees to NG placement. Will restart IV fluids. Follow serial abdominal films, exam and lab work. Hopefully will resolve soon. Minimize narcotics. (2) Acute appendicitis with generalized peritonitis, without abscess: Onset Date: ~11/23/20 Qualifiers: Appendicitis gangrene presence: with gangrene Appendicitis perforation presence: with perforation Qualified Code(s): K35.20 - Acute appendicitis with generalized peritonitis, without abscess Code(s): K35.20 - Acute appendicitis with generalized peritonitis, without abscess Status: Acute Assessment and Plan: Will DC SUGAR drain. Only draining serous fluid both yesterday and today. No longer needed. (3) Hypokalemia: Code(s): E87.6 - Hypokalemia Status: Acute Assessment and Plan: Potassium up to 3.4. Will supplement with IV fluids. Continue to monitor. Subjective Subjective Date/Time Seen: 11/29/20 12:22 Post Op day: 5 ( Status post laparoscopic appendectomy for ruptured appendicitis 11/24/2020) Patient reports: still having pain ( mild abdominal pain with distention as before. No better after enemas yesterday.), no bowel movement, nausea and afebrile Interval history: Patient had both a fleets enema and a soapsuds enema yesterday with some stool from the soapsuds enema but no significant bowel movement. Still feels distended with mild abdominal pain and now some nausea. Review of Systems Review of Systems: All systems reviewed & are unremarkable except as noted in HPI and below Constitutional: Constitutional: Denies body ache(s), Denies chills, Denies fever(s), Denies headache(s) and Reports poor appetite Cardiovascular: Cardiovascular: Denies chest pain and Denies dyspnea Respiratory: Respiratory: Denies cough and Denies dyspnea Gastrointestinal: Gastrointestinal: Reports as per HPI, Reports abdominal pain, Reports constipation and Reports nausea Neurologic: Denies confusion and Denies headache(s) Exam Const: General: comfortable and no acute distress; No confusion Orientation/consciousness: patient oriented x3 and No confusion Resp: Effort & Inspection: normal respiratory effort Auscultation: clear to auscultation bilaterally Cardio: Rate: regular rate Rhythm: regular rhythm GI: Inspection: distended, incision ( Laparoscopic incisions healing well) and other ( SUGAR drain remains serous) GI Palp: Yes Soft to palpation, Yes Tenderness to palpation present (GI) ( mild diffuse tenderness), No Guarding due to palpation present (GI), No Hernia present, No Palpable mass present and No Rebound tenderness present Auscultation: absent bowel sounds Neuro: General: patient oriented x3, no focal motor deficits and No confusion Extrem: General: no calf tenderness and no edema Psych: Affect: normal affect Insight: Good insight present (Psych) Judgement: Good judgement present (Psych) Objective Data Vital Signs Vital Signs: Vital Signs - 24 hr 11/28/20 14:00 11/28/20 21:02 11/29/20 06:00 Temperature 36.3 C L 36.4 C 37.0 C Pulse Rate 92 87 88 Respiratory Rate 20 16 16 Blood Pressure 140/76 151/73 H 153/72 H Pulse Oximetry 97 99 94 blood pressure and heart rate both slightly higher Intake/Output Intake/Output: Intake & Output 11/26/20 11/27/20 11/28/20 11/30/20 23:59 23:59 23:59 00:59 Intake Total 4430 3330 2440 440 Output Total 2390 1440 1200 330 Balance 2040 1890 1240 110
[2020-11-29] MEDS: MORPHINE SULFATE (*CRX) 4 MG/ML INJ 1 MG IV PUSH (13:33)
[2020-11-29] MEDS: KCL 40 MEQ/D5/0.9% SOD CHL 1,000 ML 100 ML IV CONT (13:40)
[2020-11-29 14:00] VITALS: BP 158/82; PULSE 93; RESP 14; TEMP 36.3; O2SAT 93
[2020-11-29] MEDS: BENZOCAINE/MENTHOL (*BKC) 18 EA LOZENGE 1 LOZENGE PO ×2 (14:45→18:51)
[2020-11-29] MEDS: IBUPROFEN IV 800 MG/200 ML 800 MG/200 ML BAG 250 MG IVPB (14:49)
[2020-11-29] MEDS: IBUPROFEN IV 800 MG/200 ML 800 MG/200 ML BAG 400 MG IVPB (21:12)
[2020-11-29 21:56] VITALS: BP 149/79; PULSE 87; RESP 18; TEMP 36.1; O2SAT 96
[2020-11-30] MEDS: KCL 40 MEQ/D5/0.9% SOD CHL 1,000 ML 100 ML IV CONT (01:50)
[2020-11-30 05:10] LABS: Alanine Aminotransferase 14 U/L (4-35); Albumin Level 2.6 g/dL (3.5-5.1); Alkaline Phosphatase 63 U/L (38-126); Anion Gap 0 mmol/L (8-16); Aspartate Amino Transferase 22 U/L (14-36); Bilirubin,Total 0.5 mg/dL (0.2-1.3); Blood Urea Nitrogen 8 mg/dL (7-17); Calcium 7.4 mg/dL (8.4-10.2); Carbon Dioxide 29 mmol/L (22-30); Chloride 107 mmol/L (98-107); Estimated CRCL calculation 94 ml/min; Estimated Glomerular Filt Rate > 60; Glucose 116 mg/dL (65-105); Potassium 3.8 mmol/L (3.4-5.0); Sodium 136 mmol/L (137-145)
[2020-11-30] MEDS: MORPHINE SULFATE (*CRX) 4 MG/ML INJ 1 MG IV PUSH ×2 (05:25→16:51)
[2020-11-30] MEDS: BENZOCAINE/MENTHOL (*BKC) 18 EA LOZENGE 1 LOZENGE PO (05:28)
[2020-11-30] MEDS: PHENOL/SOD PHENO SPRAY CHERRY (*BKC) 1 SPRAY MUCOUS MEM (05:28)
[2020-11-30 05:57] LABS: Hematocrit 30.9 % (37.0-47.0); Hemoglobin 10.2 g/dL (12.0-15.0); Mean Corpuscular Hemoglobin 30.4 pg (26-34); Mean Platelet Volume 9.1 fl (7.4-10.4); Platelet Count Result 349 k/mm3 (150-375); Red Blood Count 3.36 M/mm3 (4.2-5.4); Red Cell Distribution Width 13.5 % (11.5-14.5)
[2020-11-30 06:00] VITALS: BP 149/71; PULSE 89; RESP 18; TEMP 36; O2SAT 95
[2020-11-30 09:21] VITALS: PULSE 87; RESP 18; O2SAT 93
[2020-11-30] MEDS: NICOTINE (*PBKC) 21 MG PATCH 1 PATCH TRANSDERM (09:25)
[2020-11-30] MEDS: FAMOTIDINE 20 MG/2 ML VIAL IV PUSH ×2 (09:25→21:16)
[2020-11-30] MEDS: ENOXAPARIN 40 MG/0.4 ML SYRINGE SUB-Q (09:25)
--- NOTE | 2020-11-30 09:37 | PC.NURSE ---
Discussed need to increase activity with patient. Patient states she did not walk in the halls yesterday but will today. Discussed how increasing activity can help her ileus to resolve faster. Patient in agreement with walking in about an hour. Will follow up and encourage patient to do so.
--- NOTE | 2020-11-30 11:29 | PM.PNGS ---
Progress Note: A&P Assessment and Plan (1) Adynamic ileus: Code(s): K56.0 - Paralytic ileus Status: Acute Assessment and Plan: seems to be improving. Still does not have much in the way of bowel sounds but did have a bowel movement. Good NG output and NG tube is in good position on plain films. Continue NPO, IV fluids, serial labs and KUB. Hopefully, she will continue to improve and possibly we can DC her NG tube tomorrow. (2) Acute appendicitis with generalized peritonitis, without abscess: Onset Date: ~11/23/20 Qualifiers: Appendicitis gangrene presence: with gangrene Appendicitis perforation presence: with perforation Qualified Code(s): K35.20 - Acute appendicitis with generalized peritonitis, without abscess Code(s): K35.20 - Acute appendicitis with generalized peritonitis, without abscess Status: Acute Assessment and Plan: Continue IV antibiotics. Will have completed 7 days of IV antibiotics tomorrow. Will DC antibiotics after that. (3) Hypokalemia: Code(s): E87.6 - Hypokalemia Status: Acute Assessment and Plan: Receiving potassium with IV fluid. Potassium up to 3.8. Continue to monitor. Subjective Subjective Date/Time Seen: 11/30/20 11:29 Post Op day: 6 Patient reports: feels better ( Once NG tube out), pain is less, bowel movement and afebrile Review of Systems Review of Systems: All systems reviewed & are unremarkable except as noted in HPI and below Constitutional: Constitutional: Denies headache(s) Cardiovascular: Cardiovascular: Denies chest pain and Denies dyspnea Respiratory: Respiratory: Denies cough and Denies dyspnea Gastrointestinal: Gastrointestinal: Reports as per HPI and Reports abdominal pain ( less abdominal pain, had a bowel movement) Neurologic: Denies confusion and Denies headache(s) Exam Const: General: comfortable and no acute distress; No confusion Orientation/consciousness: patient oriented x3 and No confusion GI: Inspection: distended, incision ( healing well) and other ( over a 1000 cc NG output since placed yesterday) GI Palp: Yes Soft to palpation, Yes Tenderness to palpation present (GI) ( less tender, less distended), No Guarding due to palpation present (GI), No Palpable mass present and No Rebound tenderness present Auscultation: absent bowel sounds Neuro: General: patient oriented x3, no focal motor deficits and No confusion Extrem: General: no calf tenderness and no edema Psych: Affect: normal affect Insight: Good insight present (Psych) Judgement: Good judgement present (Psych) Objective Data Vital Signs Vital Signs: Vital Signs - 24 hr 11/29/20 14:00 11/29/20 21:56 11/30/20 06:00 Temperature 36.3 C L 36.1 C L 36.0 C L Pulse Rate 93 87 89 Respiratory Rate 14 18 18 Blood Pressure 158/82 H 149/79 H 149/71 H Pulse Oximetry 93 96 95 11/30/20 09:21 Temperature Pulse Rate 87 Respiratory Rate 18 Blood Pressure Pulse Oximetry 93 Intake/Output Intake/Output: Intake & Output 11/27/20 11/28/20 11/29/20 11/30/20 22:59 22:59 23:59 23:59 Intake Total 870 Output Total 500 Balance 370 Meds/Results Medications: Active Medications Generic Name Dose Route Start Last Admin Trade Name Freq PRN Reason Stop Dose Admin Acetaminophen 500 mg 11/25/20 14:18 11/27/20 20:50 Acetaminophen 500 Mg Tablet PO 500 mg Q6H PRN Administration Mild Pain (1-3) or Fever Hydrocodone Bitart/Acetaminophen 1 tab 11/25/20 14:18 11/29/20 05:19 Hydrocodone/Acetaminophen (*Crx) 7.5-325 Mg Tablet PO 1 tab Q6H PRN Administration Pain Rated 7-10 Hydrocodone Bitart/Acetaminophen 1 tab 11/25/20 20:43 11/26/20 16:30 Hydrocodone/Acetaminophen (*Crx) 5-325 Mg Tablet PO 1 tab Q6H PRN Administration Pain Rated 4-6 Benzocaine 1 lozenge 11/29/20 12:02 11/30/20 05:28 Benzocaine/Menthol (*Bkc) 18 Ea Lozenge PO 1 lozenge PRN PRN Ad
--- NOTE | 2020-11-30 13:45 | PC.NURSE ---
Patient c/o feeling like she is having labored breathing. Patient does appear to be breathing heavier than normal. Patient walked in halls earlier and did not have any issues with shortness of breath. States she feels like she is getting winded easily walking to the bathroom and even while resting in bed. Lungs continue to sound clear. O2 sat 95% on room air. Called Dr. Levin's office and left message with staff regarding same.
[2020-11-30 14:00] VITALS: BP 142/78; PULSE 86; RESP 16; TEMP 37.2; O2SAT 98
--- NOTE | 2020-11-30 15:00 | PC.NURSE ---
Called CXR report to Dr. Levin's office. Left results with office staff. Awaiting call back.
--- NOTE | 2020-11-30 17:05 | PC.NURSE ---
Patient continues to feel short of breath after walking to bathroom and even when resting. O2 sat remains in mid-90s on room air. Patient has now had 2 episodes of coughing . Cough sounds congested. Patient states she got choked up and started coughing. Call out to exchange to notify surgery of respiratory issues.
[2020-11-30] MEDS: KCL 40 MEQ/D5/0.9% SOD CHL 1,000 ML 50 ML IV CONT (17:20)
[2020-11-30] MEDS: IBUPROFEN IV 800 MG/200 ML 800 MG/200 ML BAG 400 MG IVPB (17:28)
--- NOTE | 2020-11-30 21:08 | PM.IMCN ---
Assessment and Plan Assessment and plan (1) Acute appendicitis with generalized peritonitis, without abscess: Onset Date: ~11/23/20 Qualifiers: Appendicitis gangrene presence: with gangrene Appendicitis perforation presence: with perforation Qualified Code(s): K35.20 - Acute appendicitis with generalized peritonitis, without abscess Code(s): K35.20 - Acute appendicitis with generalized peritonitis, without abscess Status: Acute Assessment and Plan: Status post appendectomy. Postop care per surgery. With antibiotics, wound care, pain management, DVT prophylaxis. (2) Adynamic ileus: Code(s): K56.0 - Paralytic ileus Status: Acute Assessment and Plan: The patient has an NG tube to the right near. The patient fears that her NG tube has gotten dislodged. I did notice it in the posterior pharynx and appears to be in place. However patient stated that she coughed earlier and felt that she cough the tube out of her stomach. Will get another abdominal x-ray. It was noted that if her ileus is resolved by tomorrow that she could possibly get the NG tube out. (3) Overweight (BMI 25.0-29.9): Onset Date: Unknown Code(s): E66.3 - Overweight Status: Acute Assessment and Plan: Due to excess calorie intake. (4) Pleural effusion: Code(s): J90 - Pleural effusion, not elsewhere classified Status: Acute Assessment and Plan: I did give her low-dose Lasix. I believe that she may possibly be fluid overload. I will turn down her fluids slightly. (5) Cigarette smoker: Code(s): F17.210 - Nicotine dependence, cigarettes, uncomplicated Status: Chronic Assessment and Plan: Continue with nicotine patch HPI Data of Consult Consult date: 11/30/20 Requesting Physician: Moiz Bautista MD Primary Care Provider: ART SUPERVISOR PHYSICIAN Consult Narrative Narrative: Adele Reeder is a 50 year old female who presented to the emergency room that started 2 days prior to that. She has severe lower abdomen for more than 24 hours. The patient thought that maybe she just had a urinary tract infection her or severe gas. She tried Pepto-Bismol without any relief. Per CT she appeared to have a dilated perforated appendix with some small air bubbles along sided it and along with some fluid collection as well. Her white count was elevated 24,000. She had some mild hypotension. She was seen by the surgeon and had a laparoscopic appendectomy that day. To have an ileus 2 days ago a KUB appear to show an ileus pattern. An NG tube has been placed. Today the patient has been up walking around has had several bowel movements. The patient stated that she was coughing and short of breath. She feels as if her NG tube came out of place. I looked in the back of her throat it was still in place. However the patient was insistent that her NG tube had gotten dislodged by coughing. The NG tube still has been draining brown substance. NG tube output. She still continues to have IV fluids. Her potassium was low but is now back up to normal. Development of small pleural effusions. The patient could possibly have small amount of fluid overload. I did order her small amount of Lasix. I am aware that her potassium had been low and is just now back up to normal. Patient was admitted to inpatient and the hospitalist was asked to consult the patient today. Review of Systems Review of Systems: All systems reviewed & are unremarkable except as noted in HPI and below Constitutional: Constitutional: Reports as per HPI and Reports no additional constitutional complaints Eyes: Eyes: Reports as per HPI and Reports no additional eye complaints ENT: Reports system reviewed and no additional complaints, except as documented and Reports Normal hearing present Cardiovascular: Cardiovascular: Reports no additional cardiovascular complaints Respiratory: Respiratory: Reports no
[2020-11-30] MEDS: FUROSEMIDE INJ 40 MG/4 ML VIAL 20 MG IV PUSH (21:16)
[2020-11-30 22:00] VITALS: BP 101/78; PULSE 86; RESP 20; TEMP 36.2; O2SAT 98
[2020-12-01] MEDS: IBUPROFEN IV 800 MG/200 ML 800 MG/200 ML BAG 400 MG IVPB (04:02)
[2020-12-01 05:38] LABS: Basophils Absolute Auto 0.1 K/mm3 (0.0-0.1); Basophils Percent Auto 0.5 % (0.2-1.2); Eosinophils Absolute Auto 0.4 K/mm3 (0-0.3); Eosinophils Percent Auto 3.1 % (0-4.4); Hematocrit 31.5 % (37.0-47.0); Hemoglobin 10.3 g/dL (12.0-15.0); Immature Granulocyte Absolute 0.52 K/mm3 (0.00-0.031); Immature Granulocyte Percent A 3.7 % (0-0.5); Lymphocytes Absolute Auto 3.38 K/mm3 (0.9-3.2); Lymphocytes Percent Auto 24.2 % (18.3-44.2); Mean Corpuscular HGB Conc 32.7 g/dl (32-36); Mean Corpuscular Hemoglobin 29.3 pg (26-34); Mean Corpuscular Volume 89.7 fl (80-100); Monocytes Absolute Auto 1.1 K/mm3 (0.1-0.6); Monocytes Percent Auto 7.9 % (2.6-8.5); Neutrophils Absolute Auto 8.5 K/mm3 (1.3-6.7); Neutrophils Percent Auto 60.6 % (45.5-73.1); Platelet Count Result 429 k/mm3 (150-375); Red Blood Count 3.51 M/mm3 (4.2-5.4); Red Cell Distribution Width 13.5 % (11.5-14.5)
[2020-12-01 05:55] LABS: Anion Gap 3 mmol/L (8-16); Blood Urea Nitrogen 3 mg/dL (7-17); Calcium 8.3 mg/dL (8.4-10.2); Carbon Dioxide 30 mmol/L (22-30); Chloride 105 mmol/L (98-107); Estimated CRCL calculation 94 ml/min; Estimated Glomerular Filt Rate > 60; Glucose 104 mg/dL (65-105); Magnesium 1.7 mg/dL (1.6-2.3); Potassium 3.4 mmol/L (3.4-5.0); Sodium 138 mmol/L (137-145)
[2020-12-01 06:00] VITALS: BP 105/68; PULSE 81; RESP 20; TEMP 36.2; O2SAT 98
--- NOTE | 2020-12-01 08:37 | PC.NURSE ---
To radiology via w/c with transporter. NGT clamped
[2020-12-01 09:33] VITALS: BMI 28.9
--- NOTE | 2020-12-01 09:37 | PM.PNGS ---
Progress Note: A&P Assessment and Plan (1) Adynamic ileus: Code(s): K56.0 - Paralytic ileus Status: Acute Assessment and Plan: Clinically resolved, suspect films are lagging. Will get gastrograffin UGI/SBFT. If normal transit will d/c NG and start oral intake. Probably home tomorrow. (2) Acute appendicitis with generalized peritonitis, without abscess: Onset Date: ~11/23/20 Qualifiers: Appendicitis gangrene presence: with gangrene Appendicitis perforation presence: with perforation Qualified Code(s): K35.20 - Acute appendicitis with generalized peritonitis, without abscess Code(s): K35.20 - Acute appendicitis with generalized peritonitis, without abscess Status: Acute (3) Cigarette smoker: Code(s): F17.210 - Nicotine dependence, cigarettes, uncomplicated Status: Chronic (4) Hypokalemia: Code(s): E87.6 - Hypokalemia Status: Acute Assessment and Plan: potassium 3.4 today. Continue to supplement. Subjective Subjective Date/Time Seen: 12/01/20 09:37 Post Op day: 7 Patient reports: no new complaints, feels better, pain is less, bowel movement and afebrile Review of Systems Review of Systems: All systems reviewed & are unremarkable except as noted in HPI and below Constitutional: Constitutional: Denies headache(s) Cardiovascular: Cardiovascular: Denies chest pain and Denies dyspnea Respiratory: Respiratory: Denies cough and Denies dyspnea Gastrointestinal: Gastrointestinal: Reports as per HPI, Denies abdominal pain, Denies constipation, Denies nausea and Denies vomiting Neurologic: Denies confusion and Denies headache(s) Exam Const: General: comfortable and no acute distress; No confusion Orientation/consciousness: patient oriented x3 and No confusion GI: Inspection: non-distended and incision (healing well) GI Palp: Yes Soft to palpation, No Tenderness to palpation present (GI), No Guarding due to palpation present (GI) and No Rebound tenderness present Auscultation: normal bowel sounds Neuro: General: patient oriented x3, no focal motor deficits and No confusion Extrem: General: no calf tenderness and no edema Psych: Affect: normal affect Insight: Good insight present (Psych) Judgement: Good judgement present (Psych) Objective Data Vital Signs Vital Signs: Vital Signs - 24 hr 11/30/20 14:00 11/30/20 22:00 12/01/20 06:00 Temperature 37.2 C 36.2 C L 36.2 C L Pulse Rate 86 86 81 Respiratory Rate 16 20 20 Blood Pressure 142/78 H 101/78 105/68 Pulse Oximetry 98 98 98 Intake/Output Intake/Output: Intake & Output 11/28/20 11/29/20 11/30/20 12/01/20 22:59 23:59 23:59 23:59 Intake Total 2220 950 Output Total 1300 400 Balance 920 550 Meds/Results Medications: Active Medications Generic Name Dose Route Start Last Admin Trade Name Freq PRN Reason Stop Dose Admin Acetaminophen 500 mg 11/25/20 14:18 11/27/20 20:50 Acetaminophen 500 Mg Tablet PO 500 mg Q6H PRN Administration Mild Pain (1-3) or Fever Hydrocodone Bitart/Acetaminophen 1 tab 11/25/20 14:18 11/29/20 05:19 Hydrocodone/Acetaminophen (*Crx) 7.5-325 Mg Tablet PO 1 tab Q6H PRN Administration Pain Rated 7-10 Hydrocodone Bitart/Acetaminophen 1 tab 11/25/20 20:43 11/26/20 16:30 Hydrocodone/Acetaminophen (*Crx) 5-325 Mg Tablet PO 1 tab Q6H PRN Administration Pain Rated 4-6 Benzocaine 1 lozenge 11/29/20 12:02 11/30/20 05:28 Benzocaine/Menthol (*Bkc) 18 Ea Lozenge PO 1 lozenge PRN PRN Administration Sore Throat Diphenhydramine HCl 25 mg 11/25/20 14:18 Diphenhydramine Hcl Inj 50 Mg/Ml Vial IV PUSH Q6H PRN Itching Enoxaparin Sodium 40 mg 11/29/20 09:00 11/30/20 09:25 Enoxaparin 40 Mg/0.4 Ml Syringe SUB-Q 40 mg DAILY BHAVYA Administration Famotidine 20 mg 11/28/20 21:00 11/30/20 21:16 Famotidine 20 Mg/2 Ml Vial IV PUSH 20 mg Q12HR BHAVYA Administration Pi
[2020-12-01] MEDS: FAMOTIDINE 20 MG/2 ML VIAL IV PUSH ×2 (11:16→20:45)
[2020-12-01] MEDS: ENOXAPARIN 40 MG/0.4 ML SYRINGE SUB-Q (11:16)
[2020-12-01] MEDS: NICOTINE (*PBKC) 21 MG PATCH 1 PATCH TRANSDERM (11:16)
--- NOTE | 2020-12-01 11:29 | PM.IMPN ---
Progress Note: A&P Assessment and Plan (1) Acute appendicitis with generalized peritonitis, without abscess: Onset Date: ~11/23/20 Qualifiers: Appendicitis gangrene presence: with gangrene Appendicitis perforation presence: with perforation Qualified Code(s): K35.20 - Acute appendicitis with generalized peritonitis, without abscess Code(s): K35.20 - Acute appendicitis with generalized peritonitis, without abscess Status: Acute Assessment and Plan: With rupture Status post appendectomy 11/25/20 patient doing well -await small-bowel follow-through and remove NG if it looks normal -continue Zosyn with adjustments being made by the primary team (2) 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 Good prognosis -will need outpatient colonoscopy, I gave her Dr. Parks information -spoke with surgery (3) Adynamic ileus: Code(s): K56.0 - Paralytic ileus Status: Acute Assessment and Plan: Await GI follow-through as above (4) Overweight (BMI 25.0-29.9): Onset Date: Unknown Code(s): E66.3 - Overweight Status: Acute Assessment and Plan: Encourage weight loss and exercise (5) Pleural effusion: Code(s): J90 - Pleural effusion, not elsewhere classified Status: Acute Assessment and Plan: She had some shortness of breath yesterday and chest x-ray showed possible development of small pleural effusions. One dose of Lasix was given and the patient feels much better today. She reports no shortness of breath. -will stop IV fluids once the patient is eating (6) Cigarette smoker: Code(s): F17.210 - Nicotine dependence, cigarettes, uncomplicated Status: Chronic Assessment and Plan: Continue with nicotine patch -smoking cessation is essential especially with this neuroendocrine tumor Time Spent With Patient Time with patient: 25 - 35 minutes Subjective Date/time seen: 12/01/20 11:29 Interval history: Pt is a 50-year-old female here for appendicitis. Patient was seen today and has no complaints other than the NG tube. She had her small-bowel follow-through earlier today and said she had a bowel movement during the exam. She has not had any nausea, vomiting or abdominal pain with that. I spoke with her about her pathology reports and she requested GI referral for a colonoscopy. She denies chest pain, shortness of breath, fevers or chills. A Review of Systems Review of Systems: All systems reviewed & are unremarkable except as noted in HPI and below Exam Narrative: Exam Narrative: General: Well developed well nourished patient in NAD HEENT: normocephalic, NG tube intact Neck: supple Neuro: Alert and oriented x4 CV:RRR Resp:CTA Abd: Soft, non distended. No pain to palpation. Positive bowel sounds. Incision sites clean and dry Extremities: No swelling, erythema, or pain to palpation. Objective Data Vital Signs Vital Signs: Vital Signs - 24 hr 11/30/20 14:00 11/30/20 22:00 12/01/20 06:00 Temperature 99.0 F 97.1 F L 97.2 F L Pulse Rate 86 86 81 Respiratory Rate 16 20 20 Blood Pressure 142/78 H 101/78 105/68 Pulse Oximetry 98 98 98 Intake/Output Intake/Output: Intake & Output 11/28/20 11/29/20 11/30/20 12/01/20 22:59 23:59 23:59 23:59 Intake Total 2220 950 Output Total 1300 400 Balance 920 550 Meds/Results Medications: Active Medications Generic Name Dose Route Start Last Admin Trade Name Freq PRN Reason Stop Dose Admin Acetaminophen 500 mg 11/25/20 14:18 11/27/20 20:50 Acetaminophen 500 Mg Tablet PO 500 mg Q6H PRN Administration Mild Pain (1-3) or Fever Hydrocodone Bitart/Acetaminophen 1 tab 11/25/20 14:18 11/29/20 05:19 Hydrocodone
--- NOTE | 2020-12-01 13:30 | PC.NURSE ---
Called Dr. Levin's office and left message for office staff regarding SBFT results. Patient requesting to have NGT d/kendall if possible. Awaiting further orders.
[2020-12-01 14:00] VITALS: BP 135/84; PULSE 80; RESP 18; TEMP 36; O2SAT 92
[2020-12-01] MEDS: KCL 40 MEQ/D5/0.9% SOD CHL 1,000 ML 50 ML IV CONT (14:45)
--- NOTE | 2020-12-01 16:45 | PC.NURSE ---
Patient tolerated clear liquid diet without difficulty. Ordered full liquids for suppertime. No c/o pain, nausea or additional distention.
[2020-12-01 20:00] VITALS: PULSE 80; RESP 18; O2SAT 92
[2020-12-01] MEDS: IBUPROFEN 400 MG TABLET 800 MG PO (21:32)
[2020-12-01 22:00] VITALS: BP 115/71; PULSE 88; RESP 20; TEMP 36.6; O2SAT 99
[2020-12-02 05:36] LABS: Basophils Absolute Auto 0.1 K/mm3 (0.0-0.1); Basophils Percent Auto 0.8 % (0.2-1.2); Eosinophils Absolute Auto 0.4 K/mm3 (0-0.3); Eosinophils Percent Auto 3.2 % (0-4.4); Hematocrit 30.9 % (37.0-47.0); Hemoglobin 9.9 g/dL (12.0-15.0); Immature Granulocyte Absolute 0.56 K/mm3 (0.00-0.031); Immature Granulocyte Percent A 4.3 % (0-0.5); Lymphocytes Absolute Auto 3.57 K/mm3 (0.9-3.2); Lymphocytes Percent Auto 27.3 % (18.3-44.2); Mean Corpuscular Hemoglobin 29.4 pg (26-34); Mean Corpuscular Volume 91.7 fl (80-100); Mean Platelet Volume 9.1 fl (7.4-10.4); Monocytes Absolute Auto 0.9 K/mm3 (0.1-0.6); Neutrophils Absolute Auto 7.5 K/mm3 (1.3-6.7); Neutrophils Percent Auto 57.4 % (45.5-73.1); Platelet Count Result 434 k/mm3 (150-375); Red Blood Count 3.37 M/mm3 (4.2-5.4); Red Cell Distribution Width 13.7 % (11.5-14.5); White Blood Count 13.1 K/mm3 (4.5-10.0)
[2020-12-02 05:48] LABS: Anion Gap 3 mmol/L (8-16); Blood Urea Nitrogen 5 mg/dL (7-17); Carbon Dioxide 27 mmol/L (22-30); Chloride 109 mmol/L (98-107); Estimated CRCL calculation 94 ml/min; Estimated Glomerular Filt Rate > 60; Glucose 99 mg/dL (65-105); Potassium 3.6 mmol/L (3.4-5.0); Sodium 139 mmol/L (137-145)
[2020-12-02 06:00] VITALS: BP 102/60; PULSE 79; RESP 20; TEMP 36.5; O2SAT 98
--- NOTE | 2020-12-02 06:58 | PM.DS ---
DS: Admitting Diagnosis Admitting Diagnosis Admitting Diagnosis: Ruptured appendicitis with generalized peritonitis smoker DS: Discharge Diagnosis Discharge Diagnosis (1) Acute appendicitis with generalized peritonitis, without abscess: Onset Date: ~11/23/20 Qualifiers: Appendicitis gangrene presence: with gangrene Appendicitis perforation presence: with perforation Qualified Code(s): K35.20 - Acute appendicitis with generalized peritonitis, without abscess Code(s): K35.20 - Acute appendicitis with generalized peritonitis, without abscess Status: Acute Assessment and Plan: patient underwent laparoscopic appendectomy on 11/25/2020. She received 7 days of IV antibiotics and will go home on an additional 3 days of Levaquin and Flagyl. 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 There was focal invasion of the mesoappendix but margins were clear. This was discussed with the patient and recommended to have outpatient colonoscopy. She was given information to contact Dr. Parks for this purpose. (3) Adynamic ileus: Code(s): K56.0 - Paralytic ileus Status: Acute Assessment and Plan: Patient developed ileus in the postoperative period. This is not surprising considering she had a difficult prolonged surgery and generalized peritonitis. This required NG suction bowel rest and eventually resolved. (4) Hypokalemia: Code(s): E87.6 - Hypokalemia Status: Acute Assessment and Plan: Potassium was supplemented during her hospital stay. Potassium on discharge is 3.6. She will continue supplement after discharge for few additional days. (5) Cigarette smoker: Code(s): F17.210 - Nicotine dependence, cigarettes, uncomplicated Status: Chronic Assessment and Plan: Patient had been cutting down prior to her admission. She requests a prescription for nicotine patch on discharge as she wishes to stop smoking. DS: Summary Hospital Course Hospital Course: see summary narrative Time Spent with Patient Time attestation: Total time spent providing and/or coordinating discharge services: Patient came into the hospital on November 25 very early in the morning. She had an over 24 hour history of diffuse abdominal pain. In the emergency room and on admission she was found to be diffusely tender with evidence of peritonitis. [place] white blood [place] [id number]. Her CT scan showed evidence of appendicitis and suggestion of a ruptured appendix as there were some bubbles of air in the area of the inflammatory changes associated with appendicitis. She was taken to surgery on 11/25/[address] Bautista. Laparoscopic appendectomy was performed. After surgery the patient was continued on IV Zosyn antibiotics. She had a SUGAR drain. She had no purulent output from the SUGAR drain and this was discontinued on postop day 4. , 11/29/2020. The patient developed abdominal pain and distension on 11/28/2020. Initially she was given enemas but had little results. Imaging suggested abdominal ileus. Were oral intake was held and a nasogastric tube was placed on 11/29/2020. The patient had a large amount out of the NG tube and improved fairly quickly. She had bowel movements and an upper GI small-bowel follow-through with Gastrografin was done on 12/01/2020. This showed normal but rather slow transit of about 1-1/2 hours. The patient did have a little cramping after the study but had multiple bowel movements and the cramping resolved by the day of discharge 12/02/2020. She was adamant to be discharged on 12/02/2020. She was having no abdominal pain. She was tolerating oral intake well. She is discharged in good condition at this time. Exam Const: Gene
== END 2020-12-02 08:30 | disposition home or self-care (01) | DRG 233 ==
LOC: ANHED 02:51 → ANH2MED 07:12
PROVIDERS: Nurse Practitioner; Physician Assistant; Admitting Provider Surgery; Emergency Provider Emergency Medicine; Visit Provider Surgery
PROC: 0DTJ4ZZ Resection of Appendix, Percutaneous Endoscopic Approach (ICD-10-PCS; CPT 44970; principal; 2020-11-25 10:30)
DX: K35.20 Acute appendicitis with generalized peritonitis, without abscess (principal); D3A.8 Other benign neuroendocrine tumors; K91.89 Other postprocedural complications and disorders of digestive system; K56.0 Paralytic ileus; J90 Pleural effusion, not elsewhere classified; F17.210 Nicotine dependence, cigarettes, uncomplicated; E87.6 Hypokalemia; Z90.49 Acquired absence of other specified parts of digestive tract
CPT/HCPCS: 36415; 71046; 74018; 74019; 74177; 74240; 74248; 80048; 80053; 81001; 83690; 83735; 85014; 85018; 85025; 85027; 87040; 87086; 87088; 88304; 88313; 88342; 96361; 96374; 96375; 96376; 99285; A9270; J0330; J1100; J1170; J1650; J1741; J1940; J2250; J2270; J2370; J2405; J2543; J2704; J2710; J3010; J3480; J7030; J7120; Q9967

== ENCOUNTER 2020-12-22 12:44 | Outpatient (CLI) | payer OTHER, SELFPAY ==
--- NOTE | ~2020-12-22 | XR_ITS ---
EXAMINATION: XR abdomen obstructive series DATE: 12/22/2020 13:31 INDICATION: Unspecified abdominal pain. TECHNIQUE: Upright and supine views of the abdomen on 3 radiographs were obtained. COMPARISON: Abdomen radiographs 12/02/2020, CT abdomen and pelvis 11/25/2020 FINDINGS: There are dilated loops of small bowel. The colon is normal in caliber. No free intraperito mercedez gas. There are phleboliths in the pelvis. IMPRESSION: 1. Dilated small bowel, consistent with adynamic ileus versus small bowel obstruction. Reviewed, dictated and finalized at location A. IMPRESSION: 1. Dilated small bowel, consistent with adynamic ileus versus small bowel obstr uction.
[2020-12-22 13:53] LABS: Basophils Percent Auto 0.5 % (0.2-1.2); Eosinophils Absolute Auto 0.3 K/mm3 (0-0.3); Eosinophils Percent Auto 3.8 % (0-4.4); Hematocrit 37.5 % (37.0-47.0); Hemoglobin 11.8 g/dL (12.0-15.0); Immature Granulocyte Absolute 0.02 K/mm3 (0.00-0.031); Immature Granulocyte Percent A 0.2 % (0-0.5); Lymphocytes Absolute Auto 3.99 K/mm3 (0.9-3.2); Lymphocytes Percent Auto 48.8 % (18.3-44.2); Mean Corpuscular HGB Conc 31.5 g/dl (32-36); Mean Corpuscular Hemoglobin 28.9 pg (26-34); Mean Corpuscular Volume 91.7 fl (80-100); Mean Platelet Volume 9.9 fl (7.4-10.4); Monocytes Absolute Auto 0.4 K/mm3 (0.1-0.6); Monocytes Percent Auto 4.3 % (2.6-8.5); Neutrophils Absolute Auto 3.5 K/mm3 (1.3-6.7); Neutrophils Percent Auto 42.4 % (45.5-73.1); Platelet Count Result 340 k/mm3 (150-375); Red Blood Count 4.09 M/mm3 (4.2-5.4); Red Cell Distribution Width 13.3 % (11.5-14.5); White Blood Count 8.2 K/mm3 (4.5-10.0)
[2020-12-22 14:05] LABS: Add Urine Microscopic? YES; Appearance Urine Cloudy (Clear); Bacteria Urine Trace /hpf; Bilirubin Urine Negative (Negative); Blood Urine 1+ (Negative); Color Urine Yellow (Yellow); Glucose Urine UA Negative (Negative); Ketones Urine Negative (Negative); Leukocyte Esterase Ur 1+ LEU/UL (Negative); Mucus Urine Rare /lpf; Nitrate Urine Negative (Negative); Protein Urine Negative (Negative); RBC Urine 0-2 /hpf (0-2); Specific Grav Ur 1.012 (1.001-1.035); Squamous Epithelial Cell Urine Many /hpf (Few); Urobilinogen Urine Negative mg/dL (<2.0)
[2020-12-22 14:07] LABS: Alanine Aminotransferase 17 U/L (4-35); Albumin Level 4.2 g/dL (3.5-5.1); Alkaline Phosphatase 83 U/L (38-126); Anion Gap 6 mmol/L (8-16); Aspartate Amino Transferase 26 U/L (14-36); Bilirubin,Total 0.5 mg/dL (0.2-1.3); Blood Urea Nitrogen 7 mg/dL (7-17); Calcium 9.1 mg/dL (8.4-10.2); Carbon Dioxide 27 mmol/L (22-30); Chloride 108 mmol/L (98-107); Estimated Glomerular Filt Rate > 60; Glucose 98 mg/dL (65-105); Potassium 4.1 mmol/L (3.4-5.0); Sodium 141 mmol/L (137-145)
[2020-12-26 20:29] LABS: CRP, High Sensitivity 0.9 mg/L (***)
== END 2020-12-22 12:45 | disposition home or self-care (01) ==
LOC: ANHLAB 12:46
PROVIDERS: Visit Provider Surgery
DX: R10.9 Unspecified abdominal pain (principal); R93.5 Abnormal findings on diagnostic imaging of other abdominal regions, including retroperitoneum
CPT/HCPCS: 36415; 74019; 80053; 81001; 85025; 86141; 87077; 87086; 87088

== ENCOUNTER → 2021-01-15 02:33 | Outpatient (CLI) | payer OTHER, SELFPAY ==
[2021-01-15 19:11] LABS: SARS-CoV-2 RNA PCR Negative
== END ==
PROVIDERS: Visit Provider Internal Medicine Gastroenterology
DX: Z01.812 Encounter for preprocedural laboratory examination (principal); Z20.822 Contact with and (suspected) exposure to COVID-19
CPT/HCPCS: C9803; U0003; U0005

== ENCOUNTER 2021-01-18 02:30 | Day surgery (SDC) | payer OTHER, SELFPAY ==
[2021-01-12 14:40] VITALS: BMI 28.0
[2021-01-18 12:46] VITALS: BP 107/78; PULSE 92; RESP 20; TEMP 36.6; O2SAT 97; BMI 27.3
[2021-01-18] MEDS: LACTATED RINGERS 1,000 ML 150 ML IV CONT (12:54)
--- NOTE | 2021-01-18 13:05 | WPDANESEPPF ---
Anes - Initial Pre Proc Eval Procedure: Operation Date: 01/18/21 14:15 Proposed Procedures p Esophagogastroduodenoscopy & Colonoscopy - Gaston Ramos MD Date/Time: 01/18/21 13:05 Surgeon: Gaston Ramos MD Pre Op Diagnosis: epigastric pain, neuroendocrine tumor Patient Data Age: 50 Gender: F Height: 5 ft 3 in Weight: 70 kg Last Vital Signs Temp 36.6 C 01/18/21 12:46 Pulse 92 01/18/21 12:46 Resp 20 01/18/21 12:46 BP 107/78 01/18/21 12:46 Pulse Ox 97 01/18/21 12:46 Allergies Allergy/AdvReac Type Severity Reaction Status Date / Time Sulfa (Sulfonamide Allergy Mild Anaphylactic Verified 01/18/21 12:45 Antibiotics) Shock Home Medications Medication Instructions Recorded Confirmed Type acetaminophen 325 mg tablet 325 mg PO Q6H PRN 12/24/20 01/12/21 History bismuth subsalicylate 262 mg 2 tablet PO Q1H PRN 12/24/20 01/12/21 History chewable tablet simethicone 50 mg/5 mL oral 50 mg PO DAILY 12/24/20 01/12/21 History suspension varenicline [Chantix Starting 1 ea PO BID 01/12/21 01/12/21 History Month Box] Patient hx anesthesia problems: none Family hx anesthesia problems: none PMFSH Past Medical History Medical History Cigarette smoker Epigastric pain Neuroendocrine neoplasm of appendix Overweight (BMI 25.0-29.9) (Unknown) Surgical History Surgical History History of breast augmentation S/P appendectomy Family History Family History Mother History of heart attack Father Sepsis Social History Social History Social History: The patient has 3 children and she is . 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 She works for [employer]. [employer]. She does currently smoke cigarettes and is currently using a nicotine patch. No alcohol or illicit drugs. Smoking packs per day: 1 Smoking cigarettes per day: 20.0 Years smoked: 10 Smoking pack-years: 10.00 Smoking status: Current every day smoker Tobacco type: cigarettes Additional smoking assessment comments: 2 to 3 per day for last couple of days Alcohol intake: never Substance use: never Substance use type: does not use Living arrangements: with family Additional occupation/education comments: works for a [employer] Gender identity (if verbalized by the patient): Female Spiritual care concerns: No Anes - Eval Final PreProcedure Day of Procedure 01/18/21 13:05 Patient weight: overweight Heart: regular rate and rhythm Lungs: decreased breath sounds Airway: Mallampati scale class II Neurological: alert and oriented Last oral intake: >/= 8 hours ASA classification: III Emergent: no Anesthetic plan: proceed Anesthesia type and monitoring: general GIVS and standard monitoring Informed Consent: The patient's anesthetic plan and its attendant risks and benefits were discussed with the patient/family/POA. Questions were solicited and answers provided to the satisfaction of the patient/family/POA.
--- NOTE | 2021-01-18 13:25 | WPDHPUPDATE1 ---
History and Physical Update Update Date/Time: 01/18/21 13:25 History and Physical has been reviewed, including an updated exam of the patient. There are NO changes in the patient's condition. Risks, benefits, and alternatives have been discussed and questions answered. Patient agrees to proceed with procedure.
[2021-01-18 14:05] VITALS: BP 98/69; PULSE 88; RESP 15; O2SAT 98
[2021-01-18 14:15] VITALS: BP 102/74; PULSE 85; RESP 22; O2SAT 100
[2021-01-18 14:25] VITALS: BP 116/70; PULSE 80; RESP 18; O2SAT 100
[2021-01-18] MEDS: ONDANSETRON INJ 4 MG/2 ML VIAL IV PUSH (14:33)
== END 2021-01-18 14:56 | disposition home or self-care (01) ==
PROVIDERS: Visit Provider Internal Medicine Gastroenterology
PROC: 0DJ08ZZ Inspection of Upper Intestinal Tract, Via Natural or Artificial Opening Endoscopic (ICD-10-PCS; CPT 43235; principal; 2021-01-18 14:15)
DX: Z12.11 Encounter for screening for malignant neoplasm of colon (principal); K63.5 Polyp of colon; K21.00 Gastro-esophageal reflux disease with esophagitis, without bleeding; K44.9 Diaphragmatic hernia without obstruction or gangrene; K64.8 Other hemorrhoids; D3A.8 Other benign neuroendocrine tumors; R10.31 Right lower quadrant pain; R10.13 Epigastric pain; F17.210 Nicotine dependence, cigarettes, uncomplicated
CPT/HCPCS: 43239; 45380; 45385; 88305; J2405; J2704; J7120

== ENCOUNTER 2024-02-14 01:30 | Day surgery (SDC) | payer OTHER, SELFPAY ==
[2024-01-25 13:36] VITALS: BMI 27.3
[2024-02-14 08:21] VITALS: BP 102/67; PULSE 102; RESP 16; TEMP 36.3; O2SAT 99
[2024-02-14] MEDS: LACTATED RINGERS 1,000 ML 150 ML IV CONT (08:30)
--- NOTE | 2024-02-14 08:35 | WPDANESEPPF ---
Anes - Initial Pre Proc Eval Procedure: Operation Date: 02/14/24 09:30 Proposed Procedures p Screening Colonoscopy - Gaston Ramos MD Date/Time: 02/14/24 08:35 Surgeon: Gaston Ramos MD Pre Op Diagnosis: hx colon polyps Patient Data Age: 53 Gender: F Height: 1.6 m Weight: 72.4 kg Last Vital Signs Temp 97.4 F L 02/14/24 08:21 Pulse 102 H 02/14/24 08:21 Resp 16 02/14/24 08:21 BP 102/67 02/14/24 08:21 Pulse Ox 99 02/14/24 08:21 O2 Del Method Room Air 02/14/24 08:21 Allergies Allergy/AdvReac Type Severity Reaction Status Date / Time Sulfa (Sulfonamide Allergy Mild Anaphylactic Verified 02/14/24 08:20 Antibiotics) Shock Home Medications Medication Instructions Recorded Confirmed Type acetaminophen 325 mg tablet 325 mg PO Q6H PRN Pain, Mild 12/24/20 01/25/24 History (Tylenol) bismuth subsalicylate 262 mg 2 tablet PO Q1H PRN Abdominal 12/24/20 01/25/24 History chewable tablet (Peptic Relief) Discomfort simethicone 50 mg/5 mL oral 50 mg PO DAILY 12/24/20 01/25/24 History suspension omeprazole 40 mg capsule,delayed 40 mg PO DAILY #30 caps 05/06/21 01/25/24 Rx release Patient hx anesthesia problems: none Family hx anesthesia problems: none Results Review: All pre-operative results and documents have been reviewed as part of the pre-operative evaluation. [facility] Past Medical History Medical History Cigarette smoker Epigastric pain Neuroendocrine neoplasm of appendix Overweight (BMI 25.0-29.9) (Unknown) Surgical History Surgical History History of breast augmentation S/P appendectomy Family History Family History Mother History of heart attack Father Sepsis Social History Social History Social History: The patient has 3 children and she is . 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 She works for [employer]. [place]. She does currently smoke cigarettes and is currently using a nicotine patch. No alcohol or illicit drugs. Smoking packs per day: 0.5 Smoking cigarettes per day: 10.0 Years smoked: 10 Smoking pack-years: 5.00 Smoking status: Current every day smoker Tobacco type: cigarettes Additional smoking assessment comments: 2 to 3 per day for last couple of days Alcohol intake: never Substance use: never Substance use type: does not use Living arrangements: with family Occupation/Education: occupation Additional occupation/education comments: works for a [employer] Gender identity (if verbalized by the patient): Female Spiritual care concerns: No Anes - Eval Final PreProcedure Day of Procedure 02/14/24 08:35 Patient weight: normal Heart: regular rate and rhythm Lungs: clear to auscultation Airway: Mallampati scale class II Neurological: alert and oriented Last oral intake: >/= 8 hours ASA classification: II Emergent: no Anesthetic plan: proceed Anesthesia type and monitoring: general GIVS and standard monitoring Results Review: All pre-operative results and documents have been reviewed as part of the pre-operative evaluation. Informed Consent: The patient's anesthetic plan and its attendant risks and benefits were discussed with the patient/family/POA. Questions were solicited and answers provided to the satisfaction of the patient/family/POA.
--- NOTE | 2024-02-14 09:05 | PM.HPGS ---
History of Present Illness History of Present Illness Consent: Risks, benefits, and alternatives have been discussed and questions answered. Patient agrees to proceed with procedure. Chief complaint: hx colon polyps Narrative: Adele Reeder is a 53 year old female with colon polyps in 2020 Review of Systems Review of Systems: All systems reviewed & are unremarkable except as noted in HPI and below PMFSH Past Medical History Medical History (Updated 02/14/24 @ 09:06 by Gaston Ramos MD) Cigarette smoker Colon polyp Epigastric pain Neuroendocrine neoplasm of appendix Overweight (BMI 25.0-29.9) (Unknown) Surgical History Surgical History History of breast augmentation S/P appendectomy Family History Family History Mother History of heart attack Father Sepsis Social History Social History Social History: The patient has 3 children and she is . 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 She works for [employer]. She does currently smoke cigarettes and is currently using a nicotine patch. No alcohol or illicit drugs. Smoking packs per day: 0.5 Smoking cigarettes per day: 10.0 Years smoked: 10 Smoking pack-years: 5.00 Smoking status: Current every day smoker Tobacco type: cigarettes Additional smoking assessment comments: 2 to 3 per day for last couple of days Alcohol intake: never Substance use: never Substance use type: does not use Living arrangements: with family Occupation/Education: occupation Additional occupation/education comments: works for a [employer] Gender identity (if verbalized by the patient): Female Spiritual care concerns: No Meds Home Medications and Allergies Home Medications Medication Instructions Recorded Confirmed Type acetaminophen 325 mg tablet 325 mg PO Q6H PRN Pain, Mild 12/24/20 01/25/24 History (Tylenol) bismuth subsalicylate 262 mg 2 tablet PO Q1H PRN Abdominal 12/24/20 01/25/24 History chewable tablet (Peptic Relief) Discomfort simethicone 50 mg/5 mL oral 50 mg PO DAILY 12/24/20 01/25/24 History suspension omeprazole 40 mg capsule,delayed 40 mg PO DAILY #30 caps 05/06/21 01/25/24 Rx release Allergies Allergy/AdvReac Type Severity Reaction Status Date / Time Sulfa (Sulfonamide Allergy Mild Anaphylactic Verified 02/14/24 08:20 Antibiotics) Shock Vital Signs Vital Signs - 24 hr 02/14/24 08:21 Temperature 97.4 F L Pulse Rate 102 H Respiratory Rate 16 Blood Pressure 102/67 Pulse Oximetry 99 Oxygen Delivery Room Air Exam Const: General: comfortable and no acute distress HENMT: Face/Nose/Sinus: Normal nares present Eyes: General: appearance normal, both eyes and all related structures Neck: Neck: no JVD Resp: Auscultation: clear to auscultation bilaterally Cardio: Rate: regular rate Rhythm: regular rhythm GI: Inspection: non-distended GI Palp: Yes Soft to palpation Skin: General skin exam: normal color Neuro: General: gait normal Speech: normal speech Extrem: General: normal to inspection Psych: Mental Status: mental status grossly normal Assessment and Plan Assessment and plan (1) Colon polyp: Code(s): K63.5 - Polyp of colon Status: Acute Assessment and Plan: colonoscopy
[2024-02-14 09:31] VITALS: BP 92/61; PULSE 91; RESP 22; O2SAT 96
[2024-02-14 09:41] VITALS: BP 89/63; PULSE 70; RESP 18; O2SAT 100
[2024-02-14 09:51] VITALS: BP 111/69; PULSE 73; RESP 23; O2SAT 100
== END 2024-02-14 10:03 | disposition home or self-care (01) ==
PROVIDERS: Visit Provider Internal Medicine Gastroenterology
PROC: 0DJD8ZZ Inspection of Lower Intestinal Tract, Via Natural or Artificial Opening Endoscopic (ICD-10-PCS; CPT 45378; principal; 2024-02-14 09:30)
DX: Z12.11 Encounter for screening for malignant neoplasm of colon (principal); D12.4 Benign neoplasm of descending colon; K62.1 Rectal polyp; K57.30 Diverticulosis of large intestine without perforation or abscess without bleeding; K64.8 Other hemorrhoids; F17.210 Nicotine dependence, cigarettes, uncomplicated
CPT/HCPCS: 45385; 88305; J2704; J7120